=== PATIENT | female | born 1990 | race Caucasian/White ===

== ENCOUNTER → 2016-10-15 | Outpatient (CLI) | payer OTHER ==
[~2016-10-15] MED LIST: PREN1TAB29
[2016-10-15 11:21] LABS: BASO % 0.2 %; BASO ABS # 0.01 K/uL (0-0.2); COMPLETE YES; EOS % 0.8 %; HEMATOCRIT 35.1 % (37-47); IG% 0.2 %; LYMPH % 26.8 %; LYMPH ABS # 1.58 K/uL (1.2-3.4); MEAN CELL VOLUME 95.6 fL (80-100); MEAN CORPUSCULAR HEMOGLOBIN 34.1 pg (25-34); MEAN CORPUSCULAR HGB CONC 35.6 g/dl (32-36); MEAN PLATELET VOLUME 10.4 fL (7.4-10.4); MONO % 5.3 %; NEUT % 66.7 %; PLATELET COUNT 220 K/uL (130-400); RED BLOOD COUNT 3.67 M/uL (4.2-5.4)
[2016-10-15 12:10] LABS: URINE APPEARANCE CLEAR (CLEAR); URINE BILIRUBIN NEG (NEG); URINE COLOR YELLOW; URINE EPITHELIAL CELL AUTO 20-30 /lpf (0-5); URINE NITRITE NEG (NEG); URINE PH 7.5 (4.5-7.5); UROBILINOGEN NEG (NEG)
[2016-10-15 12:18] LABS: MANUAL MICROSCOPIC REQUIRED? NO; REVIEW REQ? NO
[2016-10-17 02:15] LABS: CHLAMYDIA TRACH RNA*** NOT DETECTED (NOT DETECTED); GC (NEIS GONORRHOEAE)RNA** NOT DETECTED (NOT DETECTED)
== END | disposition home or self-care (01) ==
LOC: C.LAB1850 09:52
PROVIDERS: ATTEND Obstetrics & Gynecology
DX: O09.33 Supervision of pregnancy with insufficient antenatal care, third trimester (principal)

== ENCOUNTER 2016-10-20 00:11 | Observation (INO) | payer OTHER ==
[~2016-10-20] VITALS: Ht 165.1 cm; Wt 70.9 kg
[2016-10-20 01:34] VITALS: BMI 26.0
[2016-10-20] MEDS ORDERED: LACTATED RINGER'S 1000ML 1,000 ML IV PRN (03:28)
[2016-10-20] MEDS ORDERED: LACTATED RINGER'S 1000ML 1,000 ML IV SCH (03:28)
[2016-10-20] MEDS ORDERED: PENICILLIN G POTASSIUM IV 3 MU in DEXTROSE 5% 100ML 100 ML IV PRN (03:30)
[2016-10-20 03:38] VITALS: Ht 165.1 cm; Wt 70.9 kg
[2016-10-20] MEDS ORDERED: PENICILLIN G POTASSIUM IV 6 MU in DEXTROSE 5% 250ML 250 ML IV ONE (03:45)
[2016-10-20 04:01] LABS: MEAN CORPUSCULAR HGB CONC 34.7 g/dl (32-36); PLATELET COUNT 215 K/uL (130-400); RED BLOOD COUNT 3.47 M/uL (4.2-5.4); WHITE BLOOD COUNT 8.17 K/uL (4.8-10.8)
[2016-10-20] MEDS ORDERED: IV FLUIDS COMPLETED PRN (04:45)
[2016-10-20] MEDS ORDERED: INFLUENZA VIRUS QUAD VACCINE 0.5 ML SYR IM. ONE (08:00)
[2016-10-20] MEDS ORDERED: INFLUENZA ADMINISTRATION CHARGE ONE (08:00)
--- NOTE | 2016-10-20 09:01 | Discharge Instructions ---
Discharge Instructions Admission Reason for Admission: LABOR Discharge Discharge Diagnosis / Problem: 38w, contractions without labor Discharge Goals Goal(s): Continuing OB care Activity Recommendations Activity Limitations: per Instructions/Follow-up section SPECIAL CARE INSTRUCTIONS: Call Doctor if: * Regular contractions every 5 minutes. * Bleeding * Water breaks or is leaking * Decreased movement * Fever >100.4 degrees F * Pain not relieved by routine measures or pain medication ordered. FOLLOW UP VISIT: Return to office tomorrow for scheduled appointment. . Current Hospital Diet Patient's current hospital diet: Discharge Diet Recommended Diet: Regular Diet Pending Studies Studies pending at discharge: no Medical Emergencies . Who to Call and When: Medical Emergencies: If at any time you feel your situation is an emergency, please call 911 immediately. . Non-Emergent Contact Non-Emergency issues call your: Primary Care Provider, Speedboat Operator . . "Provider Documentation" section prepared by Chinyere Moody. VTE Core Measure Inpt VTE Proph given/why not?: Treatment not indicated
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
== END 2016-10-20 09:30 | disposition home or self-care (01) ==
LOC: C.LD 00:11 → C.OPB 00:11 → C.LD 03:32 → INTOOBSV 03:32 → C.OPB 03:32
PROVIDERS: ADMIT Obstetrics & Gynecology; ATTEND Obstetrics & Gynecology
DX: O62.9 Abnormality of forces of labor, unspecified (principal); O99.820 Streptococcus B carrier state complicating pregnancy; O09.33 Supervision of pregnancy with insufficient antenatal care, third trimester; O99.333 Smoking (tobacco) complicating pregnancy, third trimester; F17.210 Nicotine dependence, cigarettes, uncomplicated; Z3A.38 38 weeks gestation of pregnancy; Z91.410 Personal history of adult physical and sexual abuse; Z86.19 Personal history of other infectious and parasitic diseases

== ENCOUNTER 2016-10-23 20:10 | Inpatient (IN) | payer OTHER ==
[~2016-10-23] VITALS: Ht 165.1 cm; Wt 72.5 kg
[2016-10-23 21:06] VITALS: Ht 165.1 cm; Wt 72.5 kg
[2016-10-23] MEDS ORDERED: LACTATED RINGER'S 1000ML 1,000 ML IV SCH (22:52)
[2016-10-23] MEDS ORDERED: LACTATED RINGER'S 1000ML 1,000 ML IV PRN (22:52)
[2016-10-23] MEDS ORDERED: CEFAZOLIN IV 1,000 MG in DEXTROSE 5% 50ML 50 ML IV PRN (23:00)
[2016-10-23] MEDS ORDERED: CEFAZOLIN IV 2,000 MG in DEXTROSE 5% 50ML 50 ML IV STA (23:09)
[2016-10-23 23:13] LABS: HEMATOCRIT 31.5 % (37-47); MEAN CELL VOLUME 95.5 fL (80-100); MEAN CORPUSCULAR HEMOGLOBIN 33.9 pg (25-34); MEAN CORPUSCULAR HGB CONC 35.6 g/dl (32-36); MEAN PLATELET VOLUME 9.7 fL (7.4-10.4); PLATELET COUNT 224 K/uL (130-400); WHITE BLOOD COUNT 7.09 K/uL (4.8-10.8)
[2016-10-23] MEDS ORDERED: FENTANYL 2MCG/ML ROPIV 1.25MG/ML 100ML BAG EPI ONE (23:30)
[2016-10-23] MEDS ORDERED: BUPIVACAINE 0.25% 30 ML VIAL ONE (23:30)
[2016-10-23] MEDS ORDERED: EpHEDrine SULFATE INJ 50 MG/ML AMP ONE (23:30)
[2016-10-23] MEDS ORDERED: FENTANYL CITRATE INJ 50 MCG/1 ML 2 ML VIAL ONE (23:31)
[2016-10-23] MEDS ORDERED: NALOXONE HCL INJ 1 MG in SODIUM CHLORIDE 0.9% 1000ML 1,000 ML IV PRN (23:41)
[2016-10-23] MEDS ORDERED: LACTATED RINGER'S 1000ML 500 ML IV PRN (23:41)
[2016-10-23] MEDS ORDERED: ONDANSETRON INJ 2 MG/ML 2 ML VIAL IV PRN (23:45)
[2016-10-23] MEDS ORDERED: EpHEDrine SULFATE INJ 50 MG/ML AMP IV PRN (23:45)
[2016-10-23] MEDS ORDERED: NALOXONE HCL INJ 0.4 MG/1 ML VIAL/CARP IV PRN (23:45)
[2016-10-23] MEDS ORDERED: NALBUPHINE HCL INJ 10 MG/ML AMP IV PRN (23:45)
[2016-10-23] MEDS ORDERED: DiphenhydrAMINE HCL 50 MG/ML VIAL IV PRN (23:45)
[2016-10-23] MEDS ORDERED: FENTANYL 2MCG/ML ROPIV 1.25MG/ML 100ML BAG EPI PRN (23:45)
[2016-10-24] MEDS ORDERED: OXYTOCIN 30 UNITS/500ML NSS IV ONE (04:25)
[2016-10-24] MEDS ORDERED: ACETAMINOPHEN 325 MG TAB PO PRN (05:45)
[2016-10-24] MEDS ORDERED: LANOLIN OINT EXT PRN ×2 (05:45)
[2016-10-24] MEDS ORDERED: HYDROCORTISONE ACETATE 25 MG SUPP PR PRN (05:45)
[2016-10-24] MEDS ORDERED: SUPERCREAM 0.870 % 15GM JAR EXT PRN (05:45)
[2016-10-24] MEDS ORDERED: OXYTOCIN 30 UNITS/500ML NSS IV PRN (05:45)
[2016-10-24] MEDS ORDERED: BENZOCAINE 20% AER SPR 82.5 GM CAN EXT PRN (05:45)
[2016-10-24] MEDS ORDERED: OXYCODONE/ACETAMINOPHEN 5-325 TAB PO PRN (05:45)
[2016-10-24] MEDS ORDERED: DIPHTHERIA/TETANUS/PERTUSSIS 0.5 ML SYR/VIAL IM. ONE (05:45)
[2016-10-24] MEDS ORDERED: ACETAMINOPHEN/CODEINE 300/30MG TAB PO PRN ×2 (05:45)
--- NOTE | 2016-10-24 07:36 | DELIVERY SUMMARY ---
DATE OF OPERATION: 10/24/2016 DATE OF DELIVERY: 10/24/2016. PREOPERATIVE DIAGNOSIS: 1. Intrauterine at 38-4/7 weeks. 2. Active labor. POSTOPERATIVE DIAGNOSIS: Same. PROCEDURE: 1. Epidural anesthesia. 2. Amniotomy. 3. Spontaneous vaginal delivery. SURGEON: Dr. Pfeiffer. ANESTHESIA: Epidural. ESTIMATED BLOOD LOSS: 300 mL. PROCEDURE: The patient presented to labor and delivery and was found to be 6-7 cm dilated despite the fact that she was not sabine regularly. She was GBS positive so she was admitted, underwent an epidural and Ancef for GBS coverage. She then underwent amniotomy for clear fluid and progressed to complete complete +2 station. She pushed x1 to deliver a viable male over an intact perineum in EDINSON presentation. There was a loose nuchal cord x1 that was reduced. The rest of the infant was then delivered without difficulty. The nose and mouth were again bulb suctioned. The cord was clamped and cut and the infant was placed on the maternal abdomen for drying and attention. Cord blood segment was obtained. The placenta was delivered spontaneously intact with a 3-vessel cord. Cervix, sulci, rectum and perineum were examined and found to be intact. Hemostasis obtained with dilute Pitocin and fundal massage. Estimated blood loss was 300 mL. Apgars 8 and 9. Mother and baby doing well at the end of the delivery. I attest to the content of the Intraoperative Record and any orders documented therein. Any exceptio ns are noted below.
--- NOTE | 2016-10-24 07:49 | Anesthesia Procedure Note ---
Anesthesia Epidural Removal Nt Date & Time Oct 24, 2016 at 07:49 Vital Signs Pain Intensity: 1.0 Notes Mental Status: alert / awake / arousable, participated in evaluation Nausea / Vomiting: adequately controlled Pain: adequately controlled Airway Patency, RR, SpO2: stable & adequate BP & HR: stable & adequate Hydration State: stable & adequate Neuraxial Anesthesia: was administered, sensory block is resolved Anesthetic Complications: no major complications apparent, pt satisfied with anesthetic care Epidural: removed without complications, with tip intact
[2016-10-24] MEDS ORDERED: INFLUENZA ADMINISTRATION CHARGE ONE (08:00)
[2016-10-24] MEDS ORDERED: INFLUENZA VIRUS QUAD VACCINE 0.5 ML SYR IM. ONE (08:00)
[2016-10-24 08:45] VITALS: BP 102/66; PULSE 82; TEMP 36.5
[2016-10-24] MEDS: IBUPROFEN 600 MG TAB PO PRN ×3 (11:11→21:13)
[2016-10-24 12:45] VITALS: BP 98/61; PULSE 71; TEMP 36.4; O2SAT 99
[2016-10-24 15:30] VITALS: BP 120/79; PULSE 87; TEMP 36.5; O2SAT 97
[2016-10-24] MEDS: DOCUSATE SODIUM 100 MG CAP PO SCH ×2 (20:00→21:13)
[2016-10-24 20:45] VITALS: BP 107/74; PULSE 88; TEMP 36.3; O2SAT 98
[2016-10-24] MEDS ORDERED: NURSING VERBAL MED ORDER ONE (21:00)
[2016-10-24] MEDS: GUAIFENESIN SUGAR FREE 100 MG/5 ML UDC PO PRN (21:14)
[2016-10-25] VITALS: BP 104/68; PULSE 79; TEMP 36.4; O2SAT 98
[2016-10-25 04:00] VITALS: BP 99/64; PULSE 73; TEMP 36.7; O2SAT 98
--- NOTE | 2016-10-25 06:34 | Progress Note ---
Subjective Oct 25, 2016. Subjective conversation w/ patient, physical exam Ambulation: ambulating normally Voiding: no voiding problems Passing Gas: Yes Diet Tolerance: Regular Diet Lochia: Moderate Feeding Type: Bottle Feeding Pain: No pain reported this morning Review of Systems Constitutional: No chills, No fever Respiratory: No cough, No shortness of breath Cardiac: No chest pain Breast: No breast pain Abdomen: No nausea, No pain, No vomiting Female : No dysuria Objective Vital Signs Date Time Temp Pulse Resp B/P Pulse Ox O2 Delivery O2 Flow Rate FiO2 10/25/16 04:00 36.7 73 16 99/64 98 Room Air 10/25/16 00:00 98 Room Air 10/25/16 00:00 36.4 79 16 104/68 98 Room Air 10/24/16 20:45 36.3 88 16 107/74 98 Room Air 10/24/16 15:30 36.5 87 15 120/79 97 Room Air 10/24/16 15:30 97 Room Air 10/24/16 12:45 36.4 71 16 98/61 99 Room Air 10/24/16 08:45 36.5 82 18 102/66 Physical Exam General Appearance: WELL-APPEARING, WD/WN, NO APPARENT DISTRESS Respiratory/Chest: lungs clear, normal breath sounds Cardiovascular: regular rate, rhythm, no gallop, no murmur Abdomen: non tender, soft Fundus: Firm, Relation to Umbilicus (1cm below umbilicus) Extremities: no calf tenderness Laboratory Results Last 24 Hours Test 10/25/16 04:44 Medications Current Inpatient Medications Medications (Trade) Dose Ordered Sig/Anup Route Start Time Stop Time Status Last Admin Dose Admin Oxytocin (Pitocin IV) 30 units UD PRN IV 10/24/16 05:45 11/23/16 05:44 10/24/16 05:59 30 UNITS Benzocaine (Dermoplast Aero Spr) 1 appln PRN PRN EXT 10/24/16 05:45 11/23/16 05:44 Cocaine HCl (Supercream 0.870% Cr) BID PRN EXT 10/24/16 05:45 11/07/16 05:44 Hydrocortisone Acetate (Anusol Hc Supp) 25 mg BID PRN AR 10/24/16 05:45 11/23/16 05:44 Lanolin (Lanolin Oint) PRN PRN EXT 10/24/16 05:45 11/23/16 05:44 Prenat Multivit/ [place]/Iron/Folic Ac ( Vitamin Tab) 1 tab DAILY PO 10/24/16 08:00 11/23/16 07:59 Ibuprofen (Motrin Tab) 600 mg Q4H PRN PO 10/24/16 05:45 11/23/16 05:44 10/24/16 21:13 600 MG Acetaminophen (Tylenol Tab) 650 mg Q6H PRN PO 10/24/16 05:45 11/23/16 05:44 Acetaminophen/ Codeine Phosphate (Tylenol w/ Codeine #3 Tab) 1 tab Q4H PRN PO 10/24/16 05:45 11/23/16 05:44 Acetaminophen/ Codeine Phosphate (Tylenol w/ Codeine #3 Tab) 2 tab Q4H PRN PO 10/24/16 05:45 11/23/16 05:44 Docusate Sodium (coLACE CAP) 100 mg BID PO 10/24/16 08:00 11/23/16 07:59 10/24/16 20:00 100 MG Guaifenesin (Robitussin Sugar Free Syrup) 300 mg Q6 PRN PO 10/24/16 21:00 11/23/16 20:59 10/24/16 21:14 300 MG Assessment and Plan Post- Day#: 1 Continue Routine Care: - Vital Signs reviewed and WNL (temp max 36.7) - Blood Type: A+, GBS Positive, Rubella Immune - Encourage Ambulation today - Tolerating PO Diet - Pain well controlled this morning Resident Physician Supervision Note: I was present with Dr. Hancock during the history and exam. I discussed the case with the resident and agree with the findings and plan as documented in the note. Any exceptions or clarifications are listed here: Doing well. Asking about d/c but baby will still be in nursery. Pt aware. routine care. Documented By: Marissa Brenner
[2016-10-25 06:40] LABS: HEMATOCRIT 29.1 % (37-47)
[2016-10-25] MEDS: PRENATAL VITAMIN TAB PO SCH ×2 (08:00→08:32)
[2016-10-25 08:25] VITALS: BP 115/77; PULSE 97; TEMP 36.7
[2016-10-25] MEDS: DOCUSATE SODIUM 100 MG CAP PO SCH (08:32)
[2016-10-25] MEDS: GUAIFENESIN SUGAR FREE 100 MG/5 ML UDC PO PRN (08:33)
[2016-10-25] MEDS: IBUPROFEN 600 MG TAB PO PRN ×2 (09:57→13:53)
[2016-10-25 15:45] VITALS: BP 110/66; PULSE 88; TEMP 36.3; O2SAT 98
--- NOTE | 2016-10-25 17:10 | Discharge Instructions ---
Discharge Instructions Admission Reason for Admission: Check Labor Discharge Discharge Diagnosis / Problem: same Discharge Goals Goal(s): Routine recovery after delivery Medications Continue Dispensed Medications: supercream, dermaplast Activity Recommendations Activity Limitations: as noted below . Instructions / Follow-Up Instructions / Follow-Up ACTIVITY RECOMMENDATIONS: * Gradual return to full activity over the next 2-3 weeks. * No lifting - nothing heavier than baby over the next 2-3 weeks. * Do not engage in vigorous exercise, sexual activity or sports until cleared by your physician. * Do not drive or operate any motorized equipment until cleared by your physician. * You may shower/bathe daily. MEDICATIONS: For discomfort or pain, you may use Acetaminophen (Tylenol), Ibuprofen (Advil), or Naproxen (Aleve) following the package directions. For constipation you may use Colace following the package directions. BREAST CARE: If you are not breast feeding: * Wear a supportive bra 24 hours a day for one to two weeks. * Avoid stimulating your breasts and nipples as much as possible during the first few weeks after delivery. * When taking a shower, have the warm water hit your back, not breasts. * When your breasts feel full, apply ice packs. Usually three to four times a day helps ease the discomfort. * Take a mild pain medication (Tylenol / Motrin) when you are uncomfortable. If breast feeding: * Use breast milk to lubricate nipples. Lansinoh cream may be used for sore nipples. You do not need to remove cream prior to breast feeding. If using a different brand of cream, check the label for directions regarding removal of cream prior to nursing. * Wear a supportive bra. * If having problems with breasts or breast feeding, call a hospice consultant or your health care provider. EPISIOTOMY CARE: After delivery, if you have an episiotomy (stitches), the following steps will ease discomfort and aid healing. * For the first 24 hours after delivery, place ice packs next to your episiotomy to help reduce swelling. * After the first 24 hour-period, sitz baths, either portable or in the tub, are suggested. A shower with a shower arm sprayed over the episiotomy may be comforting. * Rosamaria care should be done after each voiding and bowel movement. Squirt warm water from a plastic bottle over the perineum (region of the body between the anus and urinary opening) and pat dry. * Use Dermoplast to ease discomfort. Shake container. [place] directly over the episiotomy. Place a Tucks on a clean sanitary pad next to your episiotomy. SPECIAL CARE INSTRUCTIONS: When you are discharged from the hospital, it is important for you to follow the instructions listed below: * During the first week at home, you should be able to care for yourself and your baby. In addition, the usual light household activities are encouraged. * Limit your activities to the way you feel. Do not try to clean the house or move furniture. Be sensible. * If you actively engage in sports and have done so up until the time of your delivery, you may resume these activities as soon as you feel able. This may take up to one month or even longer. Use good judgment. * Continue to take your vitamins for at least six weeks after the of your baby. * Your diet need not be limited unless you were on a special diet before your delivery. Breast-feeding mothers need around 2500 calories per day and at least 64-80 ounces of fluid per day (8 to 10 glasses). * You should eat foods from the four major food groups. Crash diets or fad diets are to be avoided. Eating lean meats, fresh fruits and vegetables, low-fat dairy products, high fiber foods and a regular exercise program, will help you get back to your pre- weight without putting your health at risk. * Constipation is sometimes a problem after delivery. Take a mild laxative as needed. If breast feeding, Milk of Magnesia is acceptable to use. You may use a suppository or Fleets enema if no episiotomy. * A daily shower or tub bath is suggested. Be sure to thoroughly and gently dry the perineum. * A bloody vaginal discharge will usually continue until around four weeks post . A small amount of bleeding may continue for as long as six weeks. Vaginal discharge changes from the bright red bleeding after delivery to pink then brownish and finally yellowish-pink before becoming white and disappearing. * Bleeding may increase with activity. Your first period may come in 4-8 weeks. If you are breast feeding, your period may be delayed even longer. * Grampian (sex) can begin whenever both you and your partner feel comfortable and do not have any form of genital infection. It is recommended that you wait at least six weeks for internal and external healing to occur. If you have questions, please talk to your health care practitioner. A condom should be used to prevent infection and . * Foreplay, gentle intercourse and lubrication is very important the first several times to prevent pain. A water-based lubricant such as K-Y jelly or Astroglide may be used. * If you have RH negative blood and your baby is RH positive, you will receive RHOGAM by injection prior to discharge. The nurse will give you a card to keep with you that has the date and place that you received RHOGAM after delivery. * During your care, you had a Rubella screen done to check for the presence of rubella antibodies in your blood. If your test was negative, you will receive a Rubella vaccine prior to discharge. This vaccine may cause a fever, soreness at the injection site and flu-like symptoms. If these symptoms persist, notify your health care practitioner. is not advised for one month after a Rubella vaccine. * Verbalizes understanding of car seat law as reviewed with patient nursing. * Car Seat hand-out given and reviewed with patient by nursing. * Shaken baby information reviewed with patient by nursing. Call you doctor if: * Heavy bleeding (saturating several pads an hour) or passing clots the size of your fist. * A fever >101 degrees F (38.3 degrees C) on two occasions four hours apart and /or chills. * Unusual pain in the pelvic or vaginal areas. * "Baby Blues" lasting longer than two weeks. If you have any questions or concerns, call your health care practitioner at . FOLLOW UP VISIT: * Please call the office at to schedule a 6 week examination. It is important you keep this appointment. It is important for you to make arrangements for either yearly or twice yearly check-ups thereafter. Current Hospital Diet Patient's current hospital diet: Regular OB Diet Discharge Diet Recommended Diet: Regular Diet Pending Studies Studies pending at discharge: no Medical Emergencies . Who to Call and When: Medical Emergencies: If at any time you feel your situation is an emergency, please call 911 immediately. . Non-Emergent Contact Non-Emergency issues call your: Telehealth Nurse Educator Call Non-Emergent contact if: you have a fever, temperature is above 100.5 . . "Provider Documentation" section prepared by David Tsang. VTE Core Measure Inpt VTE Proph given/why not?: Treatment not indicated
[2016-10-25 17:25] VITALS: BP_DIAS 66; PULSE 88; TEMP 36.3
== END 2016-10-25 17:35 | disposition home or self-care (01) | DRG 775 ==
LOC: C.LD 20:10 → C.OPB 20:10 → C.LD 22:53 → C.OPB 22:53 → C.OBG 10-24 09:10
PROVIDERS: ADMIT Obstetrics & Gynecology; ATTEND Obstetrics & Gynecology
PROC: 10E0XZZ Delivery of Products of Conception, External Approach (ICD-10-PCS; principal; 2016-10-24)
PROC: 10907ZC Drainage of Amniotic Fluid, Therapeutic from Products of Conception, Via Natural or Artificial Opening (ICD-10-PCS; principal; 2016-10-24)
DX: O99.824 Streptococcus B carrier state complicating childbirth (principal); Z3A.38 38 weeks gestation of pregnancy; Z37.0 Single live birth; O69.81X0 Labor and delivery complicated by cord around neck, without compression, not applicable or unspecified

== ENCOUNTER → 2016-12-04 | Outpatient (CLI) | payer OTHER | END | disposition home or self-care (01) | LOC: C.PAPS 11:59 | PROVIDERS: ATTEND Obstetrics & Gynecology | DX: Z39.2 Encounter for routine postpartum follow-up (principal) ==

== ENCOUNTER → 2017-01-01 | Outpatient (CLI) | payer OTHER ==
[2017-01-01 15:55] LABS: HEMATOCRIT 37.5 % (37-47); MEAN CELL VOLUME 96.4 fL (80-100); MEAN CORPUSCULAR HEMOGLOBIN 31.4 pg (25-34); MEAN CORPUSCULAR HGB CONC 32.5 g/dl (32-36); MEAN PLATELET VOLUME 10.3 fL (7.4-10.4); PLATELET COUNT 223 K/uL (130-400); RED BLOOD COUNT 3.89 M/uL (4.2-5.4); WHITE BLOOD COUNT 5.79 K/uL (4.8-10.8)
== END | disposition home or self-care (01) ==
LOC: C.LAB1850 14:44
PROVIDERS: ATTEND Obstetrics & Gynecology
DX: Z30.2 Encounter for sterilization (principal)

== ENCOUNTER → 2017-01-14 | Day surgery (SDC) | payer OTHER ==
[2016-12-26 11:16] VITALS: Ht 165.1 cm; Wt 63.6 kg
[~2017-01-14] VITALS: Ht 165.1 cm; Wt 63.6 kg
[~2017-01-14] MED LIST changes: +ATROPINE SULFATE 0.1 MG/ML 5ML SYR IV PRN; +DEXAMETHASONE SOD INJ 4 MG/ML VIAL ONE; +FENTANYL CITRATE INJ 50 MCG/1 ML 2 ML VIAL IV PRN; +FENTANYL CITRATE INJ 50 MCG/1 ML 2 ML VIAL ONE; +GLYCOPYRROLATE INJ 0.2 MG/ML VIAL ONE; +IBUPROFEN 600 MG TAB PO PRN; +KETOROLAC TROMETHAMINE 30 MG/ML VIAL IV. PRN; +KETOROLAC TROMETHAMINE 30 MG/ML VIAL ONE; +LIDOCAINE HCL 2% 2 ML VIAL (20MG/ML) ONE; +MIDAZOLAM HCL 1 MG/ML 2ML VIAL ONE; +NEOSTIGMINE METHYLSULFATE 5 MG/5 ML SYR ONE; +ONDANSETRON INJ 2 MG/ML 2 ML VIAL IV PRN; +ONDANSETRON INJ 2 MG/ML 2 ML VIAL ONE; +OXYCODONE/ACETAMINOPHEN 5-325 TAB PO PRN; -PREN1TAB29; +PROMETHAZINE HCL INJ 12.5 MG in SODIUM CHLORIDE 0.9% 50ML 50 ML IV PRN; +PROPOFOL IV EMULSION 10 MG/ML 20 ML VIAL IV ONE; +ROCURONIUM BROMIDE 10 MG/ML 5 ML VIAL ONE; +SILVER NITR/POTASSIUM NITRATE APPLICATOR ONE; +SODIUM CHLORIDE 0.9% 1000ML 1,000 ML IV SCH
[2017-01-14] MEDS: LACTATED RINGER'S 1000ML 1,000 ML IV SCH ×2 (11:15→13:23)
--- NOTE | 2017-01-14 12:02 | History & Physical Bridge - SC ---
H&P Re-Evaluation Bridge Note: I have examined the patient, reviewed the History & Physical and in the interval since the performance of the History & Physical I have noted the following changes of clinical significance: No changes noted
--- NOTE | 2017-01-14 12:46 | [facility] Post Operative Brief Note ---
Immediate Operative Summary Operative Date January 14, 2017. Pre-Operative Diagnosis Desires Permanent Sterilization Post-Operative Diagnosis same Procedure(s) Performed Bilateral Laparoscopic Tubal Sterilization via Coagulation Surgeon Dr. Nils Brenner Coremaker Pipe Surgeon(s) 0 Estimated Blood Loss 0 Findings uterus mobile, nl ovaries and tubes bilaterally, nl liver edge and gallbladder. nl appendix seen Fluids (cc crystalloids) 600 Specimens none Drains none Anesthesia general Complication(s) None Disposition Recovery Room / PACU
--- NOTE | 2017-01-14 12:51 | Discharge Instructions ---
Discharge Instructions Date of Service January 14, 2017. Admission Reason for Admission: Encounter For Sterilization Discharge Discharge Diagnosis / Problem: after surgery Discharge Goals Goal(s): Routine recovery after surgery Activity Recommendations Activity Limitations: as noted below . Instructions / Follow-Up Instructions / Follow-Up ACTIVITY RECOMMENDATIONS: * Rest the first 1-2 days. You should be back to your normal activity levels by day 3. * No heavy lifting for 2 weeks. * No intercourse, tampons or douching for 1-2 weeks. * You may shower the next day. * Do not drive anytime that you are taking narcotic pain medicines. RETURN TO SCHOOL/WORK: * May return to school or work after 1-2 days. DIET: Nausea may occur in the immediate post-operative period. If so, take clear liquids such as tea, bouillon, apple juice until all nausea has subsided, then resume usual diet. MEDICATIONS: Resume previous medications unless instructed otherwise by your surgeon. Ibuprofen 200mg 2-3 tablets every 4-6 hours as needed -- OR -- Aleve 2 tablets every 8-12 hours as needed for post-operative discomfort Medications are over the counter. Tylenol may be used if above medications are contraindicated or not preferred. Medication should be taken with food or milk. Do not take on an empty stomach. SPECIAL CARE INSTRUCTIONS: * Check temperature twice daily for one week. report any elevation over 101 degrees. * You may experience some vagina spotting and/or bleeding. This is normal for 1 -2 weeks and should not be heavier than a normal period. If it is unusual in amount, call your physician. * Post-operative discomfort may consist of a sore throat, a "bloated" feeling and pain in the shoulders. these are normal symptoms, which usually only last for 2-3 days. * Remove band-aids tomorrow and shower. There is no need to replace band-aids unless there is drainage or discomfort. FOLLOW UP VISIT: Call your doctor's office for a post-operative visit only if you feel that you need. Like if your incision does not seem to be healing normally. Current Hospital Diet Patient's current hospital diet: Discharge Diet Recommended Diet: Regular Diet Procedures Procedures Performed: Bilateral Laparoscopic Tubal Sterilization via Coagulation Pending Studies Studies pending at discharge: no Medical Emergencies . Who to Call and When: Medical Emergencies: If at any time you feel your situation is an emergency, please call 911 immediately. . Non-Emergent Contact Non-Emergency issues call your: Drywall Applicator . . "Provider Documentation" section prepared by Marissa Brenner. . VTE Core Measure Inpt VTE Proph given/why not?: Treatment not indicated
--- NOTE | 2017-01-14 13:25 | OPERATIVE REPORT ---
DATE OF OPERATION: 01/14/2017 PREOPERATIVE DIAGNOSIS: Desires sterilization. POSTOPERATIVE DIAGNOSIS: Same. PROCEDURE: Bilateral laparoscopic tubal coagulation. SURGEON: Dr. Marissa Brenner. INDUSTRIAL ORGANIZATIONAL PSYCHOLOGIST: None. ANESTHESIA: General. IV FLUIDS: 600 mL. ESTIMATED BLOOD LOSS: Zero. FINDINGS: Normal uterus, tubes and ovaries bilaterally. Normal liver edge and gallbladder. Normal appendix seen. INDICATIONS: A 26-year-old 4, para 4 who is sure she is done childbearing and desires permanent sterilization. She is aware of all of her control options including male vasectomy and desires to proceed. DESCRIPTION OF PROCEDURE: The patient was taken to the operating room and identified. After adequate general anesthesia was obtained, she was placed in the dorsal lithotomy position and prepped and draped in usual sterile fashion. A weighted speculum and anterior retractor were used to visualize the cervix, which was grasped in its anterior lip with a single tooth tenaculum and the acorn uterine manipulator was connected to tenaculum to allow for uterine manipulation. The bladder had been drained for clear yellow urine. Attention was then turned to the patient's abdomen, where the infraumbilical skin incision was made with a scalpel. The Veress needle was placed intraperitoneally with an opening pressure of 0 mmHg. A CO2 pneumoperitoneum was created. The 12-mm optical trocar was placed into the peritoneal cavity under direct visualization. The operative laparoscope was then switched and the patient was placed in Trendelenburg. The left fallopian tube was identified to its fimbriated end and coagulated in approximately a 3-cm segment 2-3 cm from the left cornu. The right fallopian tube was identified in a similar fashion and coagulated in a similar fashion. The pelvis and abdomen were inspected with the findings as noted above. At this point the procedure was terminated. The CO2 gas was allowed to escape from the patient's abdomen and then, the trocar was removed. The subcutaneous fat was reapproximated using 0 Vicryl followed by a subcuticular stitch of 4-0 Vicryl. The vaginal instruments were removed. No active bleeding was noted. The patient was returned to the supine position. She was awoken from anesthesia and transported to recovery room in stable condition. All sponge, lap and needle counts were correct x2. I attest to the content of the Intraoperative Record and any orders documented therein. Any exceptio ns are noted below.
[2017-01-14 14:00] VITALS: TEMP 36.5
[2017-01-14 14:20] VITALS: BP 97/67; PULSE 75; O2SAT 100
--- NOTE | 2017-01-14 14:25 | Anesthesia Progress Nt - [facility] ---
Anesthesia Post Op Note Date & Time January 14, 2017 at 14:25 Vital Signs Vital Signs Past 12 Hours Date Time Temp Pulse Resp B/P Pulse Ox O2 Delivery O2 Flow Rate FiO2 01/14/17 14:20 75 16 97/67 100 Room Air 01/14/17 14:00 36.5 70 16 104/70 98 Room Air 01/14/17 13:40 104/71 01/14/17 13:37 72 26 100 01/14/17 13:37 70 26 01/14/17 13:35 98/66 01/14/17 13:32 54 13 01/14/17 13:32 53 13 100 01/14/17 13:30 105/65 01/14/17 13:27 55 14 01/14/17 13:27 55 14 100 01/14/17 13:26 36.8 55 12 101/69 100 Room Air 01/14/17 13:25 101/69 01/14/17 13:22 67 15 98 01/14/17 13:22 62 15 01/14/17 13:21 59 13 99 01/14/17 13:21 59 13 01/14/17 13:20 101/69 01/14/17 13:16 60 14 01/14/17 13:16 60 14 99 01/14/17 13:15 98/65 01/14/17 13:11 65 16 01/14/17 13:11 67 16 100 01/14/17 13:10 99/69 01/14/17 13:08 73 21 01/14/17 13:08 72 21 95 01/14/17 13:05 93/64 01/14/17 13:03 77 18 01/14/17 13:03 78 18 98 01/14/17 13:00 97/66 01/14/17 12:58 81 18 100 01/14/17 12:58 82 18 01/14/17 12:57 105/64 01/14/17 12:56 80/59 01/14/17 12:53 36.8 94 20 118/76 98 Diffusion Mask 6 01/14/17 12:53 96 9 01/14/17 12:53 96 9 118/76 100 01/14/17 10:49 36.6 78 16 104/75 96 Room Air Notes Mental Status: alert / awake / arousable, participated in evaluation Pt Amnestic to Procedure: Yes Nausea / Vomiting: adequately controlled Pain: adequately controlled Airway Patency, RR, SpO2: stable & adequate BP & HR: stable & adequate Hydration State: stable & adequate Anesthetic Complications: no major complications apparent
== END | disposition home or self-care (01) ==
LOC: X.SURG 10:43
PROVIDERS: ATTEND Obstetrics & Gynecology
DX: Z30.2 Encounter for sterilization (principal); F17.200 Nicotine dependence, unspecified, uncomplicated

== ENCOUNTER → 2017-05-30 | Outpatient (CLI) | payer OTHER ==
[2017-05-30 09:47] LABS: HEMATOCRIT 39.2 % (37-47); MEAN CELL VOLUME 95.6 fL (80-100); MEAN CORPUSCULAR HGB CONC 33.4 g/dl (32-36); MEAN PLATELET VOLUME 10.1 fL (7.4-10.4); PLATELET COUNT 221 K/uL (130-400); WHITE BLOOD COUNT 6.14 K/uL (4.8-10.8)
[2017-05-30 09:52] LABS: URINE APPEARANCE CLEAR (CLEAR); URINE BILIRUBIN NEG (NEG); URINE COLOR YELLOW; URINE EPITHELIAL CELL AUTO >30 /lpf (0-5); URINE NITRITE NEG (NEG); URINE PH 6.5 (4.5-7.5); URINE SPECIFIC GRAVITY 1.013 (1.000-1.030); UROBILINOGEN NEG (NEG)
[2017-05-30 10:11] LABS: MANUAL MICROSCOPIC REQUIRED? NO; REVIEW REQ? NO
== END | disposition home or self-care (01) ==
LOC: C.LAB 09:16
PROVIDERS: ATTEND Nurse Practitioner Family
DX: Z02.0 Encounter for examination for admission to educational institution (principal); Z01.84 Encounter for antibody response examination

== ENCOUNTER → 2017-06-06 | Outpatient (CLI) | payer OTHER ==
[2017-06-06 11:27] LABS: URINE APPEARANCE CLEAR (CLEAR); URINE BILIRUBIN NEG (NEG); URINE COLOR YELLOW; URINE NITRITE NEG (NEG); URINE SPECIFIC GRAVITY 1.011 (1.000-1.030); UROBILINOGEN NEG (NEG)
[2017-06-06 11:28] LABS: MANUAL MICROSCOPIC REQUIRED? NO; REVIEW REQ? NO
== END | disposition home or self-care (01) ==
LOC: C.LAB 09:47
PROVIDERS: ATTEND Nurse Practitioner Family
DX: Z02.0 Encounter for examination for admission to educational institution (principal); R82.90 Unspecified abnormal findings in urine

== ENCOUNTER → 2017-11-19 | Outpatient (CLI) | payer OTHER ==
[2017-11-19 13:19] LABS: BASO % 0.4 %; BASO ABS # 0.02 K/uL (0-0.2); EOS % 3.6 %; EOS ABS # 0.19 K/uL (0-0.5); HEMATOCRIT 40.3 % (37-47); HEMOGLOBIN 13.5 g/dL (12.0-16.0); IG# 0.01 K/uL (0.00-0.02); LYMPH % 40.3 %; LYMPH ABS # 2.11 K/uL (1.2-3.4); MEAN CELL VOLUME 95.3 fL (80-100); MEAN CORPUSCULAR HEMOGLOBIN 31.9 pg (25-34); MEAN CORPUSCULAR HGB CONC 33.5 g/dl (32-36); MEAN PLATELET VOLUME 10.2 fL (7.4-10.4); MONO % 4.8 %; MONO ABS # 0.25 K/uL (0.11-0.59); NEUT % 50.7 %; NEUT ABS # 2.65 K/uL (1.4-6.5); PLATELET COUNT 241 K/uL (130-400); RED CELL DISTRIBUTION WIDTH CV 12.8 % (11.5-14.5); RED CELL DISTRIBUTION WIDTH SD 44.3 fL (36.4-46.3); WHITE BLOOD COUNT 5.23 K/uL (4.8-10.8)
[2017-11-19 13:47] LABS: BLOOD UREA NITROGEN 10 mg/dl (7-18); CARBON DIOXIDE 27 mmol/L (21-32); CREATININE 0.65 mg/dl (0.60-1.20); GLUCOSE 86 mg/dl (70-99); SODIUM 138 mmol/L (136-145)
== END | disposition home or self-care (01) ==
LOC: C.LAB 12:25
PROVIDERS: ATTEND Nurse Practitioner Family
DX: F32.9 Major depressive disorder, single episode, unspecified (principal); R53.83 Other fatigue

== ENCOUNTER 2024-10-17 18:36 | Inpatient (IN) ==
--- NOTE | 2024-10-17 19:31 | Emergency Department Note ---
Impression & Plan Depression with suicidal ideation, Anxiety ED Provider Note Provider: Олег Valencia MD CHIEF COMPLAINT: Suicidal ideation and attempt HISTORY OF PRESENT ILLNESS: Patient is a 34-year-old female history of anxiety depression and PTSD presenting here today requesting mental health care for suicidal ideation and recent attempt. 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 Last January had a suicide attempt with car monoxide in her car. Was hospitalized at [facility]. Patient states that she did have great outpatient follow-up and is in currently seeing anybody or taking any psychiatric medications. Occasionally drinks but denies other drug use. 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 Woke up the next day sweaty and cold and was upset that she was unsuccessful in completing suicide. Patient reached out to her mother who help with her children and she resigned from her job and got things in order and came here today seeking inpatient psychiatric care. States he still having thoughts of wanting to harm her self and end her life. No thoughts of wanting to harm others. No other times recently to harm her self reported. States he is probably taking medications and has not taken even a multivitamin as she just does not have the will to. PAST MEDICAL HISTORY: As noted above MEDICATIONS: None currently SOCIAL HISTORY: Smoker PHYSICAL EXAM: GENERAL: alert and oriented in no acute distress on bed Head: normocephalic and atraumatic EYES: No injection, discharge or icterus. NECK: Trachea midline. ENT: Mucous membranes pink and moist. LUNGS: Airway patent. No retractions. Breath sounds clear HEART: Regular rate and rhythm. No chest wall tenderness SKIN: Acyanotic, warm, dry, without rashes EXTREMITIES: Without swelling, tenderness or deformity NEUROLOGICAL: No focal deficits. No aphasia. No facial droop or slurred speech. Ambulatory. Psych: Flattened aspect. Endorses SI but denies HI. Not responding to external stimuli. Does maintain fairly good insight at this time. Patient's laboratory studies reviewed. Differential includes Mood disorder, infection, hypoglycemia, electrolyte abnormalities, cardiac sources, intracerebral event, toxicologic, trauma, neurologic, as well as other pathologies. IMPRESSION/MEDICAL DECISION MAKING: Seen with case management. Basic blood work obtained here. Recent suicide attempt 2 weeks ago unsuccessful and still with active ideation. She is requesting voluntary inpatient treatment I believe is indicated. Basic blood work obtained here. Work on referral. Given a nicotine patch and a bit of Ativan here for anxiety. Blood work here without any significant abnormalities or hypoglycemia. No concern at this time for UTI. A bit of blood in the urine. Bed search for voluntary inpatient care initiated. Evaluated by the 3 S. psychiatric team here. Accepted for inpatient care here. Given additional dose of Ativan for anxiety here. DIAGNOSIS: Depression with suicidal ideation, anxiety DISPOSITION: 201 completed for voluntary inpatient treatment. Past Med/Surg History Problem List (Updated 10/17/24 @ 20:52 by Олег Valencia M.D.) Anxiety (Acute) Depression with suicidal ideation (Acute) Abdominal pain affecting , antepartum with 38 completed weeks gestation Prolonged latent phase of labor Medical History (Updated 10/17/24 @ 20:52 by Олег Valencia M.D.) Varicella History of chlamydia infection Surgical History (Updated 06/20/19 @ 21:57 by Hannah Whitehead) History of colposcopy Social History (Updated 06/20/19 @ 21:57 by Hannah Whitehead) Smoking Status: Current every day smoker Tobacco Type: Cigarettes Do You Dip or Chew Tobacco: No; Preferred Language: Hebrew Communication Ability: Effective Physician Intensivist Required: No Beliefs That Will Affect Care: None Feels Safe at Home: Yes Gender Identity: Female Assistive Devices: None Allergies Allergies Allergy/AdvReac Type Severity Reaction Status Date / Time No Known Drug Allergies Allergy Unknown . Verified 12/26/16 11:15 tree nut Allergy Unknown ANAPHYLAXIS Verified 12/26/16 11:15 Home Meds Home Medications Medication Instructions Recorded Confirmed No Known Home Medications 10/17/24 10/17/24 Results & Data (ED) Vital Signs Vital Signs - 24 hr 10/17/24 18:38 10/17/24 19:40 10/17/24 20:58 Temperature 36.3 C L Temperature Source Temporal Artery Scan Pulse Rate 105 H Pulse Rate [Right Finger] 94 H 86 Pulse Rhythm Regular Pulse Rhythm [Right Finger] Regular Pulse Strength Normal Pulse Strength [Right Finger] Normal Respiratory Rate 18 17 17 Respiratory Effort / Characteristics Non-Labored Spontaneous Non-Labored Spontaneous Respiratory Depth Normal Normal Respiratory Pattern Regular Regular Blood Pressure 100/75 Blood Pressure [Right Arm] 189/114 H 167/101 H Blood Pressure Mean 83 Blood Pressure Mean [Right Arm] 139 123 Blood Pressure Position [Right Arm] Lying Sitting Pulse Oximetry 98 97 97 Oxygen Delivery Method Room Air Room Air Room Air Sepsis Recent Fever Within 48 Hours No Sepsis New/Unexplained Change in Mental Status N/A Sepsis Action Taken by Nursing No Action Required Laboratory Data 10/17/24 19:30 10/17/24 19:30 Lab Results 10/17/24 10/17/24 10/17/24 Range/Units 18:45 19:30 20:28 WBC 8.51 (4.8-10.8) K/ul RBC 4.26 (4.20-5.40) M/uL Hgb 13.8 (12.0-16.0) g/dl Hct 40.5 (37.0-47.0) % MCV 95.1 (80.0-100.0) fL MCH 32.4 (25.0-34.0) pg MCHC 34.1 (32.0-36.0) g/dL RDW Std Deviation 42.1 (36.4-46.3) fL RDW Coeff of Robert 12.0 (11.5-14.5) % Plt Count 327 (130-400) K/uL MPV 9.9 (9.4-12.4) fL Immature Gran % (Auto) 0.1 % Neut % (Auto) 55.6 % Lymph % (Auto) 30.2 % Powell % (Auto) 7.3 % Eos % (Auto) 6.2 % Baso % (Auto) 0.6 % Neut # (Auto) 4.73 (1.40-6.50) K/uL Lymph # (Auto) 2.57 (1.20-3.40) K/uL Powell # (Auto) 0.62 H (0.11-0.59) K/uL Eos # (Auto) 0.53 H (0.00-0.50) K/uL Baso # (Auto) 0.05 (0.00-0.20) K/uL Immature Gran # (Auto) 0.01 (0.01-0.20) K/uL Sodium 139 (136-145) mmol/L Potassium 4.0 (3.5-5.1) mmol/L Chloride 104 (98-107) mmol/L Carbon Dioxide 29 (21-32) mmol/L Anion Gap 6 (3-11) BUN 15 (6-23) mg/dl Creatinine 0.84 (0.6-1.2) mg/dl Est Cr Clr Drug Dosing 94.2 ml/min eGFR 92.30 BUN/Creatinine Ratio 17.9 (10-20) Glucose 95 (70-99(Fasting)) mg/dl Calcium 9.3 (8.6-10.3) mg/dl Total Bilirubin 0.5 (0.2-1.0) mg/dl AST 14 (13-39) U/L ALT 13 (7-52) U/L Alkaline Phosphatase 65 (34-104) U/L Total Protein 7.8 (6.0-8.3) gm/dl Albumin 4.9 (3.4-5.0) gm/dl Globulin 2.9 (2.5-4.0) gm/dl Albumin/Globulin Ratio 1.7 (0.9-2) TSH 3.119 (0.300-4.500) uIu/ml HCG, Qual Negative (Negative) Salicylates < 3.0 L (3.0-30) mg/dl Urine Opiates Screen Neg (Neg) Ur Methadone, Qual Neg (Neg) Urine Fentanyl Screen Neg (Neg) Acetaminophen < 3 L (10-30) ug/ml Urine Barbiturates Neg (Neg) Ur Phencyclidine (PCP) Neg (Neg) U Amphetamin/Meth Scrn Neg (Neg) MDMA (Ecstasy) Screen Neg (Neg) U Benzodiazepines Scrn Neg (Neg) Ur Cocaine Metabolite Neg (Neg) U Marijuana (THC) Screen Neg (Neg) Ethyl Alcohol mg/dL < 10.0 (<10.0) mg/dl SARS-CoV-2, RNA, NAAT NEGATIVE (NEGATIVE) Administered Medications Nicotine (Nicotine 21 Mg/24 Hr Tdsy) 1 patch TD QAM WILSON Stop: 11/16/24 19:29 Last Admin: 10/17/24 19:37 Dose: 1 patch Documented By: PAG Nicotine Polacrilex (Nicotine Polacrilex 2 Mg Gum) 2 piece MT PRN PRN PRN Reason: Nicotine Withdrawal Symptoms Stop: 11/16/24 21:39 Last Admin: 10/17/24 22:11 Dose: 2 piece Documented By: RB Discontinued Medications Lorazepam (Lorazepam 0.5 Mg Tab) 0.5 mg PO NOW STA Stop: 10/17/24 19:27 Last Admin: 10/17/24 19:37 Dose: 0.5 mg Documented By: AMITA Lorazepam (Lorazepam 1 Mg Tab) 1 mg PO NOW STA Stop: 10/17/24 21:12 Last Admin: 10/17/24 21:20 Dose: 1 mg Documented By: AMITA Discharge Plan Visit Data Chief Complaint: Mental Health Evaluation Stated Complaint: MENTAL HEATLH EVAL ED Provider: Олег Valencia Discharge Problem: Depression with suicidal ideation, Anxiety Patient Disposition: Admitted As Inpatient Discharge Instructions Interventions: ED Discharge Assessment Last Done: 10/17/24 21:32
[2024-10-17] MEDS: NICOTINE 21 MG/24 HR TDSY TD SCH (19:37)
[2024-10-17] MEDS: LORazepam 0.5 MG TAB PO STA (19:37)
[2024-10-17 19:46] LABS: Basophils # (auto) 0.05 K/uL (0.00-0.20); Basophils % (auto) 0.6 %; Eosinophils # (auto) 0.53 K/uL (0.00-0.50); Eosinophils % (auto) 6.2 %; Hematocrit (blood only) 40.5 % (37.0-47.0); Hemoglobin 13.8 g/dl (12.0-16.0); Immature Granulocytes # (auto) 0.01 K/uL (0.01-0.20); Immature Granulocytes % (auto) 0.1 %; Lymphocytes # (auto) 2.57 K/uL (1.20-3.40); Lymphocytes % (auto) 30.2 %; Mean Corpuscular Hemoglobin 32.4 pg (25.0-34.0); Mean Corpuscular Hgb Conc 34.1 g/dL (32.0-36.0); Mean Corpuscular Volume 95.1 fL (80.0-100.0); Mean Platelet Volume 9.9 fL (9.4-12.4); Monocytes # (auto) 0.62 K/uL (0.11-0.59); Monocytes % (auto) 7.3 %; Neutrophils # (auto) 4.73 K/uL (1.40-6.50); Neutrophils % (auto) 55.6 %; Platelet Count 327 K/uL (130-400); RDW Standard Deviation 42.1 fL (36.4-46.3); Red Blood Count 4.26 M/uL (4.20-5.40); White Blood Count 8.51 K/ul (4.8-10.8)
[2024-10-17 20:02] LABS: Pregnancy Test, Serum Negative (Negative)
[2024-10-17 20:03] LABS: Albumin Globulin Ratio 1.7 (0.9-2); Albumin Level 4.9 gm/dl (3.4-5.0); BUN Creatinine Ratio 17.9 (10-20); Bilirubin,Total 0.5 mg/dl (0.2-1.0); Calcium 9.3 mg/dl (8.6-10.3); Creatinine Clr Calc Pharmacy 94.2 ml/min; Globulin 2.9 gm/dl (2.5-4.0); Total Protein 7.8 gm/dl (6.0-8.3)
[2024-10-17 20:18] LABS: Thyroid Stimulating Hormone 3.119 uIu/ml (0.300-4.500)
[2024-10-17 20:46] LABS: Acetaminophen < 3 ug/ml (10-30); Salicylate < 3.0 mg/dl (3.0-30)
[2024-10-17 20:47] LABS: Appearance Urine Cloudy (Clear); Bacteria Urine Automated 2+ (None Seen); Bilirubin Urine Negative (Negative); Blood Urine 3+ (Negative); Cast Urine Automated 0-2 /lpf (0-2); Color Urine Yellow; Glucose Urine UA Negative (Negative); Ketones Urine Trace (Negative); Leukocyte Esterase Urine Trace (Negative); Nitrite Urine Negative (Negative); Protein Urine Trace (Negative); RBC Urine Automated >20 /hpf (0-2); Specific Gravity Urine 1.025 (1.000-1.030); Urobilinogen Urine Negative (Negative); WBC Urine Automated 0-5 /hpf (0-5)
[2024-10-17 21:10] LABS: Amphetamines+Metham, Urine Neg (Neg); Barbiturates, Urine Neg (Neg); Benzodiazepine, Urine Neg (Neg); Cocaine, Urine Neg (Neg); Fentanyl, Urine Neg (Neg); MDMA (Ecstacy), Urine Neg (Neg); Marijuana, Urine Neg (Neg); Methadone, Urine Neg (Neg); Opiate, Urine Neg (Neg); Phencyclidine, Urine Neg (Neg)
[2024-10-17] MEDS: LORazepam 1 MG TAB PO STA (21:20)
[2024-10-17] MEDS ORDERED: MAGNESIUM HYDROXIDE SUSP 30 ML UDC PO PRN (21:40)
[2024-10-17] MEDS ORDERED: BISMUTH SUBSALICYLATE 262 MG CHEW PO PRN (21:40)
[2024-10-17] MEDS ORDERED: SODIUM CHLORIDE 0.65% NA SOLN 45 ML (OCEAN) PRN (21:40)
[2024-10-17] MEDS: NICOTINE POLACRILEX 2 MG GUM MT PRN (22:11)
--- NOTE | 2024-10-18 09:05 | History & Physical ---
Date of Service October 18, 2024 Impression / Recommendations Impression DANITA HOGUE is a 34-year-old woman who is currently unhoused with her children (ages 7-15), has a history of MDD, DAVID, PTSD, and was admitted on 10/17/24 21:18 on a 201 voluntary commitment for SI with plan of trying to overdose on insulin and s/p attempt via insulin overdose two weeks ago. Diagnostically consistent with unspecified depression with differential including bipolar affective disorder type II current depressive episode vs major depressive disorder, recurrent severe as well as DAVID with panic attacks and PTSD. Suspect insomnia is multifactorial including difficulty due to variable overnight shift-work schedule as well as DAVID, depression and PTSD. Discussed medication treatment options in detail. Discussed risks, benefits and alternatives. Patient would like to start and consented to Eleele for suspected bipolar disorder type II and for use for suicidal ideation and depression as well as fluoxetine for depression/anxiety/PTSD. Also discussed option to consider use of clonidine for off-label use for anxiety/PTSD and/or mirtazapine for anxiety/depression/insomnia/low appetite depending on response to other new medications. Reviewed side effects including but not limited to: GI, GOLD, sexual side effects with fluoxetine; Baseline labs of TSH, Cr, electrolytes, LFTs, CBC with platelets and UA were preformed and safe to start Eleele. Patient educated on risks of dehydration, renal, thyroid, cardiac, drug interactions (NSAIDs, ACEIs, angiotensin receptor antagonists, risks) with lithium which she stated understanding of. Reviewed low BP/syncope with clonidine if used and sedation/weight gain with mirtazapine if used. Overall I spent a total of 75 minutes for this admission including review of chart records, review of labwork, direct evaluation of the patient, counseling the patient, ordering medication, risk assessment, discussion with the psychiatric liason RN and documentation in the electronic health record. (1) Depression with suicidal ideation: (2) Generalized anxiety disorder with panic attacks: (3) Post traumatic stress disorder (PTSD): (4) Bipolar II disorder with seasonal pattern: (5) Psychosocial stressors: (6) Housing insecurity: (7) Sleep disorder, shift-work: (8) Insomnia: Plan 10/18/2024: The patient was admitted to the [facility] ([facility] mental health unit) on q15 min checks (behavioral with suicide precautions) for safety. The patient will participate in group, recreational, and milieu therapies and will be offered additional individual and family sessions as clinically appropriate. -Start Fluoxetine 20mg daily -Start Eleele 300mg HS -Symptom questionnaires: mood disorder, KAYDEN scale, trauma questionnaire -Work on establishing outpatient care -She brought in leftover supply of insulin for which order has been written for it to be safely destroyed. Inventory Assets Strengths: supportive relationships, willing to get treatment Needs: safety and stabilization, medication adjustment, additional coping skills, increased outpatient services Suicide Risk Level Suicide Risk Level: High-Moderate (q15 min suicide checks) (depression with SI and s/p recent serious attempt but feels safe in the hospital and feels able to ask for support if needed) Risk Factors Assessment Male: No : Yes Do You Have Access To A Gun?: No Health Problems: No Mental Health Diagnoses: Yes Substance Use Disorders: No Previous Attempt: Yes Family History of Suicide: No Previous Psychiatric Hospitalization: Yes Hopelessness: Yes Protective Factors Assessment Responsible for Young Children: Yes Employed: No Stable Relationships: Yes Supportive Family: Yes Psychiatric History Identifying Data DANITA HOGUE is a 34-year-old woman who is currently unhoused with her children (ages 7-15), has a history of MDD, DAVID, PTSD, and was admitted on 10/17/24 21:18 on a 201 voluntary commitment for SI with plan of trying to overdose on insulin and s/p attempt via insulin overdose two weeks ago. Chief Complaint "I've been strong arming it for so long, I reached a point where it was too much". History of Present Illness She presents for psychiatric admission for worsening depression and SI with plan of insulin overdose in the context of multiple psychosocial stressors including no longer being able to afford the home she was renting (eviction notice was served two weeks ago before attempt), being a single mother, financial strain, challenges finding consistent work in recent months, and recent suicide attempt. Danita has been feeling very depressed and had made preparations to by suicide about two weeks ago including ensuring her children were in the care of her mother and then used a non-prescribed insulin pen on herself. She remains regretful that this attempt did not result in her and continues to have SI with plan and sought inpatient treatment to feeling that "I will do it again". She endorses a lot of anxiety, frequent fidgeting/restlessness, ruminative thoughts, panic attacks 1-4 times per week. Anxiety is exacerbated by her current living situation of staying at her mom's in recent weeks. She experiences constant running thoughts at night, fidgeting, and shaking. She endorses depressive symptoms including tearfulness, anhedonia, decreased motivation, self-guilt, helplessness, hopelessness, decreased energy, decreased appetite (lost 12 lbs in the last 3 months), and decreased sleep with difficulty falling and staying asleep (typically works 11pm-7am, slept a little better since quitting her job). SI has been occurring intermittently for many years but at times it becomes overwhelming as occurred in the context of losing her housing two weeks ago. She felt regretful after she survived the suicide attempt and decided them she needed to seek inpatient treatment. She continues to have flashbacks, avoidance, can be hypervigilant, sometimes has night terrors (occurs a few times per month), discomfort with physical touch, and describes being in a constant "fight or flight mode". She is not currently prescribed any psychiatric medications. She often struggles with medication adherence. Psychiatric ROS notable for no current nor history of symptoms of quinton, psychosis, OCD, nor self-harm. However she does report possible hypomanic episodes lasting a few days, characterized by increased productivity and elevated mood, followed by depressive episodes. Seasonal affective disorder is noted during winter months. 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 Past Psychiatric History Current Psychiatric Diagnosis: MDD with seasonal component, DAVID, PTSD Outpatient Services: none currently; [facility] in the past for psych and therapy Previous Psych Admissions: [facility] in January 2023 for SA via carbon monoxide poisoning Do You Have Access To A Gun?: No History of Previous Suicide Attempt: Yes Describe Attempts in the Past: CO poisoning in 2023, insulin OD in late Sep 2024 Past Medication Trials: Wellbutrin (up to 300mg daily, made her jittery) celexa 20mg daily Zoloft-had a spinning sensation Effexor Allergies Allergy/AdvReac Type Severity Reaction Status Date / Time No Known Drug Allergies Allergy Unknown . Verified 12/26/16 11:15 tree nut Allergy Unknown ANAPHYLAXIS Verified 12/26/16 11:15 Home Medications Medication Instructions Recorded Confirmed Type No Known Home Medications 10/17/24 10/17/24 History Family History Family History of: Depression (mother, maternal grandmother), Alcoholism/Drug Abuse (father) and Bipolar (paternal grandfather) Alcohol History Hx of Alcohol Use Over the Past 12 Months: Yes AUDIT Total Score: 4 sometimes drinks a 6 pack on the weekends, never with blackouts or problems with this Smoking Use Have You Smoked or Used Tobacco Products in the Last 30 Days: Yes tobacco type: cigarettes Smoking Status: Current every day smoker Smoking packs per day: 0.5 Substance History Hx of Prescription Med Misuse Over the Past 12 Months: No Hx of Over the Counter Med Misuse Over the Past 12 Months: No Hx of Inhalent Misuse Over the Past 12 Months: No Hx of Organic Substance Use Over the Past 12 Months: No Hx of Illegal Substances/Street Drug Use Over Past 12 Months: Yes (cocaine once in a while) Problems as a Result of Past Substance Use: None Identified A few times per year uses cocaine (likes that it makes her feel happy), last p rior to overdose attempt on insulin Personal History Living Arrangements: Home 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) Marital Status: (with partner for 8-9 years, haven't been together for 8 years) Beliefs That Will Affect Care: None Current Legal Problems: No Hx Legal Problems: No Hx Traumatic Life Events: Yes Patient History Medical History Varicella History of chlamydia infection Surgical History History of colposcopy Social History Smoking Status: Current every day smoker Tobacco Type: Cigarettes Do You Dip or Chew Tobacco: No; Preferred Language: Bots[place]an Communication Ability: Effective Lead Business Analyst Required: No Beliefs That Will Affect Care: None Feels Safe at Home: Yes Gender Identity: Female Assistive Devices: None Review of Systems Review of Systems: All systems reviewed & are unremarkable except as noted in HPI & below Physical Exam Psychiatric: Orientation: alert and oriented x 3 Apperance: appropriately dressed and appropriately groomed Eye Contact: good eye contact Motor Behavior: no abnormal motor movements Speech: normal rate/rhythm/volume of speech Affect: + depressed affect, + anxious affect and + tearful affect Mood: + depressed mood and + anxious mood Thought Process: goal directed thought process Thought Content: reality based without delusions Suicidal Thoughts: denies suicidal intent; + reports suicidal thoughts and + reports suicidal plan (none for hospital, outside to overdose on insulin) Homicidal Thoughts: denies homicidal thoughts Hallucinations: no auditory hallucinations and no visual hallucinations Cognition: recent memory grossly intact, remote memory grossly intact, attention grossly intact and language grossly intact Estimated Intelligence: consistent with education level Insight: + fair insight Judgment: + fair judgement Vital Signs (Past 24 Hours): Last Vital Signs Temp 36.6 C 10/18/24 06:30 Pulse 88 10/18/24 06:31 Resp 16 10/18/24 06:30 BP 129/87 10/18/24 06:31 Pulse Ox 97 10/17/24 21:47 O2 Del Method Room Air 10/17/24 21:47 Exam Statement: A physical exam was performed in the ED by Dr. Valencia for the purposes of medical clearance. I accept that physical as correct and adequate for the purposes of the inpatient physical exam. Results & Data ([facility]) Laboratory Results Laboratory Results - last 24 hr 10/17/24 10/17/24 10/17/24 18:45 19:30 20:28 WBC 8.51 RBC 4.26 Hgb 13.8 Hct 40.5 MCV 95.1 MCH 32.4 MCHC 34.1 RDW Std Deviation 42.1 RDW Coeff of Robert 12.0 Plt Count 327 MPV 9.9 Immature Gran % (Auto) 0.1 Neut % (Auto) 55.6 Lymph % (Auto) 30.2 [place] % (Auto) 7.3 Eos % (Auto) 6.2 Baso % (Auto) 0.6 Neut # (Auto) 4.73 Lymph # (Auto) 2.57 [place] # (Auto) 0.62 H Eos # (Auto) 0.53 H Baso # (Auto) 0.05 Immature Gran # (Auto) 0.01 Sodium 139 Potassium 4.0 Chloride 104 Carbon Dioxide 29 Anion Gap 6 BUN 15 Creatinine 0.84 Est Cr Clr Drug Dosing 94.2 eGFR 92.30 BUN/Creatinine Ratio 17.9 Glucose 95 Calcium 9.3 Total Bilirubin 0.5 AST 14 ALT 13 Alkaline Phosphatase 65 Total Protein 7.8 Albumin 4.9 Globulin 2.9 Albumin/Globulin Ratio 1.7 TSH 3.119 HCG, Qual Negative Urine Color Urine Appearance Urine pH Ur Specific [place] Urine Protein Urine Glucose (UA) Urine Ketones Urine Blood Urine Nitrite Urine Bilirubin Urine Urobilinogen Ur Leukocyte Esterase Urine WBC (Auto) Urine RBC (Auto) U Hyaline Cast (Auto) U Epithel Cells (Auto) Urine Bacteria (Auto) Salicylates < 3.0 L Urine Opiates Screen Neg Ur Methadone, Qual Neg Urine Fentanyl Screen Neg Acetaminophen < 3 L Urine Barbiturates Neg Ur Phencyclidine (PCP) Neg U Amphetamin/Meth Scrn Neg MDMA (Ecstasy) Screen Neg U Benzodiazepines Scrn Neg Ur Cocaine Metabolite Neg U Marijuana (THC) Screen Neg Ethyl Alcohol mg/dL < 10.0 SARS-CoV-2, RNA, NAAT NEGATIVE 10/17/24 Unknown WBC RBC Hgb Hct MCV MCH MCHC RDW Std Deviation RDW Coeff of Robert Plt Count MPV Immature Gran % (Auto) Neut % (Auto) Lymph % (Auto) [place] % (Auto) Eos % (Auto) Baso % (Auto) Neut # (Auto) Lymph # (Auto) [place] # (Auto) Eos # (Auto) Baso # (Auto) Immature Gran # (Auto) Sodium Potassium Chloride Carbon Dioxide Anion Gap BUN Creatinine Est Cr Clr Drug Dosing eGFR BUN/Creatinine Ratio Glucose Calcium Total Bilirubin AST ALT Alkaline Phosphatase Total Protein Albumin Globulin Albumin/Globulin Ratio TSH HCG, Qual Urine Color Yellow Urine Appearance Cloudy A Urine pH 6.0 Ur Specific [place] 1.025 Urine Protein Trace H Urine Glucose (UA) Negative Urine Ketones Trace H Urine Blood 3+ H Urine Nitrite Negative Urine Bilirubin Negative Urine Urobilinogen Negative Ur Leukocyte Esterase Trace H Urine WBC (Auto) 0-5 Urine RBC (Auto) >20 H U Hyaline Cast (Auto) 0-2 U Epithel Cells (Auto) 11-20 H Urine Bacteria (Auto) 2+ H Salicylates Urine Opiates Screen Ur Methadone, Qual Urine Fentanyl Screen Acetaminophen Urine Barbiturates Ur Phencyclidine (PCP) U Amphetamin/Meth Scrn MDMA (Ecstasy) Screen U Benzodiazepines Scrn Ur Cocaine Metabolite U Marijuana (THC) Screen Ethyl Alcohol mg/dL SARS-CoV-2, RNA, NAAT Current Inpatient Medications Current Inpatient Medications: Current Inpatient Medications Acetaminophen (Acetaminophen 325 Mg Tab) 650 mg PO Q4H PRN PRN Reason: Headache or Minor Fever Stop: 11/16/24 21:39 Al Hydrox/Mg Hydrox/Simethicone (Aluminum/Magnesium Susp 30 Ml Udc) 30 ml PO Q4H PRN PRN Reason: GI Upset Stop: 11/16/24 21:39 Bismuth Subsalicylate (Bismuth Subsalicylate 262 Mg Chew) 2 tab PO Q30M PRN PRN Reason: Loose Stool/Diarrhea Stop: 11/16/24 21:39 Hydroxyzine HCl (Hydroxyzine Hcl 25 Mg Tab) 50 mg PO HSZ PRN PRN Reason: Insomnia Stop: 11/16/24 21:39 Hydroxyzine HCl (Hydroxyzine Hcl 25 Mg Tab) 25 mg PO Q4H PRN PRN Reason: Anxiety Stop: 11/16/24 21:39 Magnesium Hydroxide (Magnesium Hydroxide Susp 30 Ml Udc) 30 ml PO DAILY PRN PRN Reason: Constipation Stop: 11/16/24 21:39 Miscellaneous (Remove Nicoderm Patch) 1 each N/A DAILY@0859 [facility] Stop: 11/17/24 08:58 Nicotine (Nicotine 21 Mg/24 Hr Tdsy) 1 patch TD QAM [facility] Stop: 11/16/24 19:29 Last Admin: 10/17/24 19:37 Dose: 1 patch Nicotine Polacrilex (Nicotine Polacrilex 2 Mg Gum) 2 piece MT PRN PRN PRN Reason: Nicotine Withdrawal Symptoms Stop: 11/16/24 21:39 Last Admin: 10/17/24 22:11 Dose: 2 piece Sodium Chloride (Sodium Chloride 0.65% Na Soln 45 Ml ([place])) 1 - 2 sprays NA PRN PRN PRN Reason: Nasal Dryness/Congestion Stop: 11/16/24 21:39
[2024-10-18] MEDS: FLUoxetine HCL 20 MG CAP PO SCH (14:27)
[2024-10-18] MEDS ORDERED: DESTROY THIS MEDICATION ONE (15:21)
[2024-10-18] MEDS: LITHIUM CARBONATE 300 MG TAB PO SCH (20:52)
[2024-10-18] MEDS: hydrOXYzine HCl 25 MG TAB PO PRN (20:52)
[2024-10-19] MEDS: ACETAMINOPHEN 325 MG TAB PO PRN (08:37)
--- NOTE | 2024-10-19 09:05 | Psychiatric Progress Note ---
Date of Service October 19, 2024 Impression / Recommendations Impression AUTUMN HOGUE is a 34-year-old woman who is currently unhoused with her children (ages 7-15), has a history of MDD, DAVID, PTSD, and was admitted on 10/17/24 21:18 on a 201 voluntary commitment for SI with plan of trying to overdose on insulin and s/p attempt via insulin overdose two weeks ago. Diagnostically consistent with unspecified depression with differential including bipolar affective disorder type II current depressive episode vs major depressive disorder, recurrent severe as well as DAVID with panic attacks and PTSD. Suspect insomnia is multifactorial including difficulty due to variable overnight shift-work schedule as well as DAVID, depression and PTSD. A: Ongoing depression, working to try to address and lessen some psychosocial stressors but attempting to establish robust aftercare, she was referred for outpatient case management services today. She would like to start clonidine at HS for off-label use for sleep and anxiety, reviewed side effects including but not limited to low BP/syncope. Symptom questionnaires consistent with likely BPAD type II and PTSD. Overall, I spent a total of 35 minutes on this case including meeting with the patient, reviewing the chart, nursing report, multidisciplinary team meeting, orders, and documentation. (1) Depression with suicidal ideation: (2) Generalized anxiety disorder with panic attacks: (3) Post traumatic stress disorder (PTSD): (4) Bipolar II disorder with seasonal pattern: (5) Psychosocial stressors: (6) Housing insecurity: (7) Sleep disorder, shift-work: (8) Insomnia: Plan 10/19/2024: -Start clonidine 0.1mg HS 10/18/2024: The patient was admitted to the [facility] ([facility] mental health unit) on q15 min checks (behavioral with suicide precautions) for safety. The patient will participate in group, recreational, and milieu therapies and will be offered additional individual and family sessions as clinically appropriate. -Start Fluoxetine 20mg daily -Start Laverne 300mg HS -Symptom questionnaires: mood disorder, KAYDEN scale, trauma questionnaire -Work on establishing outpatient care -She brought in leftover supply of insulin for which order has been written for it to be safely destroyed. Inventory Assets Strengths: supportive relationships, willing to get treatment Needs: safety and stabilization, medication adjustment, additional coping skills, increased outpatient services Suicide Risk Level Suicide Risk Level: High-Moderate (q15 min suicide checks) (depression with SI and s/p recent serious attempt but feels safe in the hospital and feels able to ask for support if needed) Risk Factors Assessment Male: No : Yes Do You Have Access To A Gun?: No Health Problems: No Mental Health Diagnoses: Yes Substance Use Disorders: No Previous Attempt: Yes Family History of Suicide: No Previous Psychiatric Hospitalization: Yes Hopelessness: Yes Protective Factors Assessment Responsible for Young Children: Yes Employed: No Stable Relationships: Yes Supportive Family: Yes Interval History Identifying Information AUTUMN HOGUE is a 34-year-old woman who is currently unhoused with her children (ages 7-15), has a history of MDD, DAVID, PTSD, and was admitted on 10/17/24 21:18 on a 201 voluntary commitment for SI with plan of trying to overdose on insulin and s/p attempt via insulin overdose two weeks ago. Chief Complaint "ok, I didn't sleep great". Review of Systems Sleep Information Total Hours of Sleep: 7.25 Meal Information Percent Meal Consumed - Dinner: 75 Subjective Subjective Patient was seen & assessed and interval progress reviewed with treatment team. Attended some afternoon and evening groups. Slept poorly overnight, took prn V istaril but still took awhile to fall asleep and then awake frequently. Today has some loose stools and headache (which she attributes to caffeine withdrawal) but no other medication side effects. Reviewed her symptom questionnaires-she agrees with diagnosis of PTSD and BPAD type II. Physical Exam Psychiatric Orientation: alert and oriented x 3 Apperance: appropriately dressed and appropriately groomed Eye Contact: good eye contact Motor Behavior: no abnormal motor movements Speech: normal rate/rhythm/volume of speech Affect: + depressed affect and + constricted affect Mood: + depressed mood and + anxious mood Thought Process: goal directed thought process Thought Content: reality based without delusions Suicidal Thoughts: denies suicidal intent; + reports suicidal thoughts and + reports suicidal plan (none for hospital, outside to overdose on insulin) Homicidal Thoughts: denies homicidal thoughts Hallucinations: no auditory hallucinations and no visual hallucinations Cognition: recent memory grossly intact, remote memory grossly intact, attention grossly intact and language grossly intact Estimated Intelligence: consistent with education level Insight: + fair insight Judgment: + fair judgement Vital Signs (Past 24 Hours) Last Vital Signs Temp 36.5 C 10/19/24 06:33 Pulse 79 10/19/24 06:34 Resp 16 10/19/24 06:33 BP 130/89 10/19/24 06:34 Pulse Ox 97 10/17/24 21:47 O2 Del Method Room Air 10/17/24 21:47 Results & Data ([facility]) Current Inpatient Medications Current Inpatient Medications: Current Inpatient Medications Acetaminophen (Acetaminophen 325 Mg Tab) 650 mg PO Q4H PRN PRN Reason: Headache or Minor Fever Stop: 11/16/24 21:39 Last Admin: 10/19/24 08:37 Dose: 650 mg Al Hydrox/Mg Hydrox/Simethicone (Aluminum/Magnesium Susp 30 Ml Udc) 30 ml PO Q4H PRN PRN Reason: GI Upset Stop: 11/16/24 21:39 Bismuth Subsalicylate (Bismuth Subsalicylate 262 Mg Chew) 2 tab PO Q30M PRN PRN Reason: Loose Stool/Diarrhea Stop: 11/16/24 21:39 Fluoxetine HCl (Fluoxetine Hcl 20 Mg Cap) 20 mg PO QAM [facility] Stop: 11/17/24 12:59 Last Admin: 10/19/24 08:38 Dose: 20 mg Hydroxyzine HCl (Hydroxyzine Hcl 25 Mg Tab) 50 mg PO HSZ PRN PRN Reason: Insomnia Stop: 11/16/24 21:39 Last Admin: 10/18/24 20:52 Dose: 50 mg Hydroxyzine HCl (Hydroxyzine Hcl 25 Mg Tab) 25 mg PO Q4H PRN PRN Reason: Anxiety Stop: 11/16/24 21:39 [place] Carbonate ([place] Carbonate 300 Mg Tab) 300 mg PO HS [facility] Stop: 11/17/24 21:59 Last Admin: 10/18/24 20:52 Dose: 300 mg Magnesium Hydroxide (Magnesium Hydroxide Susp 30 Ml Udc) 30 ml PO DAILY PRN PRN Reason: Constipation Stop: 11/16/24 21:39 Miscellaneous (Remove Nicoderm Patch) 1 each N/A DAILY@0859 [facility] Stop: 11/17/24 08:58 Last Admin: 10/19/24 08:39 Dose: 1 each Nicotine (Nicotine 21 Mg/24 Hr Tdsy) 1 patch TD QAM [facility] Stop: 11/16/24 19:29 Last Admin: 10/19/24 08:38 Dose: 1 patch Nicotine Polacrilex (Nicotine Polacrilex 2 Mg Gum) 2 piece MT PRN PRN PRN Reason: Nicotine Withdrawal Symptoms Stop: 11/16/24 21:39 Last Admin: 10/18/24 17:49 Dose: 2 piece Sodium Chloride (Sodium Chloride 0.65% Na Soln 45 Ml ([place])) 1 - 2 sprays NA PRN PRN PRN Reason: Nasal Dryness/Congestion Stop: 11/16/24 21:39 Mental Health & Subst Abuse Tx Therapist Name of Therapist: AMANUEL Gas Meter Installer Name of Gas Meter Installer: AMANUEL
[2024-10-19] MEDS: cloNIDine HCL 0.1 MG TAB PO SCH (21:10)
[2024-10-19] MEDS: ALUMINUM/MAGNESIUM SUSP 30 ML UDC PO PRN (21:39)
--- NOTE | 2024-10-20 09:15 | Psychiatric Progress Note ---
Date of Service October 20, 2024 Impression / Recommendations Impression AUTUMN HOGUE is a 34-year-old woman who is currently unhoused with her children (ages 7-15), has a history of MDD, DAVID, PTSD, and was admitted on 10/17/24 21:18 on a 201 voluntary commitment for SI with plan of trying to overdose on insulin and s/p attempt via insulin overdose two weeks ago. Diagnostically consistent with unspecified depression with differential including bipolar affective disorder type II current depressive episode vs major depressive disorder, recurrent severe as well as DAVID with panic attacks and PTSD. Suspect insomnia is multifactorial including difficulty due to variable overnight shift-work schedule as well as DAVID, depression and PTSD. A: Ongoing depression and periods of anxiety with associated elevated BP. Tolerated clonidine addition well but without benefit for sleep. Will start mirtazapine with goal for short-term use until fluoxetine takes effect. Reviewed side effects including but not limited to sedation, weight gain. Overall, I spent a total of 35 minutes on this case including meeting with the patient, reviewing the chart, nursing report, multidisciplinary team meeting, orders, and documentation. (1) Depression with suicidal ideation: (2) Generalized anxiety disorder with panic attacks: (3) Post traumatic stress disorder (PTSD): (4) Bipolar II disorder with seasonal pattern: (5) Psychosocial stressors: (6) Housing insecurity: (7) Sleep disorder, shift-work: (8) Insomnia: Plan 10/20/2024: -Start mirtazapine 15mg HS -Schedule Vit D and Li level for morning of 10/23/2024 10/19/2024: -Start clonidine 0.1mg HS 10/18/2024: The patient was admitted to the [facility] ([facility] mental health unit) on q15 min checks (behavioral with suicide precautions) for safety. The patient will participate in group, recreational, and milieu therapies and will be offered additional individual and family sessions as clinically appropriate. -Start Fluoxetine 20mg daily -Start [place] 300mg HS -Symptom questionnaires: mood disorder, KAYDEN scale, trauma questionnaire -Work on establishing outpatient care -She brought in leftover supply of insulin for which order has been written for it to be safely destroyed. Inventory Assets Strengths: supportive relationships, willing to get treatment Needs: safety and stabilization, medication adjustment, additional coping skills, increased outpatient services Suicide Risk Level Suicide Risk Level: High-Moderate (q15 min suicide checks) (depression with SI and s/p recent serious attempt but feels safe in the hospital and feels able to ask for support if needed) Risk Factors Assessment Male: No : Yes Do You Have Access To A Gun?: No Health Problems: No Mental Health Diagnoses: Yes Substance Use Disorders: No Previous Attempt: Yes Family History of Suicide: No Previous Psychiatric Hospitalization: Yes Hopelessness: Yes Protective Factors Assessment Responsible for Young Children: Yes Employed: No Stable Relationships: Yes Supportive Family: Yes Interval History Identifying Information AUTUMN HOGUE is a 34-year-old woman who is currently unhoused with her children (ages 7-15), has a history of MDD, DAVID, PTSD, and was admitted on 10/17/24 21:18 on a 201 voluntary commitment for SI with plan of trying to overdose on insulin and s/p attempt via insulin overdose two weeks ago. Chief Complaint "Pretty good, last night was bad and this morning but I'm feeling a little better now". Review of Systems Sleep Information Total Hours of Sleep: 5.75 Meal Information Percent Meal Consumed - Breakfast: 75 Percent Meal Consumed - Lunch: 75 Percent Meal Consumed - Dinner: 75 Subjective Subjective Patient was seen & assessed and interval progress reviewed with nursing and social work. Attending groups. BP was quite elevated last evening so received clonidine early and it improved. Normal BP this morning. Last night had a lot of anxiety due to difficulty sleeping and intrusive SI with thoughts of walking into a train. Struggled with sleep even after clonidine addition. She does like the clonidine helped her blood pressure, would like to continue this. This morning had a trauma response due to checks and vitals so struggled to sleep after that too. Headache today which she attributes to some c affeine withdrawal but it responds to tylenol. No further GI symptoms. No new medication side effects. She'd like to try mirtazapine tonight for sleep. Physical Exam Psychiatric Orientation: alert and oriented x 3 Apperance: appropriately dressed and appropriately groomed Eye Contact: good eye contact Motor Behavior: no abnormal motor movements Speech: normal rate/rhythm/volume of speech Affect: + depressed affect and + constricted affect Mood: + depressed mood and + anxious mood Thought Process: goal directed thought process Thought Content: reality based without delusions Suicidal Thoughts: denies suicidal intent; + reports suicidal thoughts and + reports suicidal plan (none for hospital, outside to overdose on insulin or walk into train) Homicidal Thoughts: denies homicidal thoughts Hallucinations: no auditory hallucinations and no visual hallucinations Cognition: recent memory grossly intact, remote memory grossly intact, attention grossly intact and language grossly intact Estimated Intelligence: consistent with education level Insight: + fair insight Judgment: + fair judgement Vital Signs (Past 24 Hours) Last Vital Signs Temp 36.5 C 10/20/24 06:00 Pulse 82 10/20/24 06:38 Resp 20 10/20/24 06:00 BP 117/80 10/20/24 06:38 Pulse Ox 97 10/20/24 06:00 O2 Del Method Room Air 10/20/24 06:00 Results & Data ([facility]) Current Inpatient Medications Current Inpatient Medications: Current Inpatient Medications Acetaminophen (Acetaminophen 325 Mg Tab) 650 mg PO Q4H PRN PRN Reason: Headache or Minor Fever Stop: 11/16/24 21:39 Last Admin: 10/19/24 08:37 Dose: 650 mg Al Hydrox/Mg Hydrox/Simethicone (Aluminum/Magnesium Susp 30 Ml Udc) 30 ml PO Q4H PRN PRN Reason: GI Upset Stop: 11/16/24 21:39 Last Admin: 10/19/24 21:39 Dose: 30 ml Bismuth Subsalicylate (Bismuth Subsalicylate 262 Mg Chew) 2 tab PO Q30M PRN PRN Reason: Loose Stool/Diarrhea Stop: 11/16/24 21:39 Clonidine HCl (Clonidine Hcl 0.1 Mg Tab) 0.1 mg PO HS W[facility]SON Stop: 11/18/24 21:59 Last Admin: 10/19/24 21:10 Dose: 0.1 mg Fluoxetine HCl (Fluoxetine Hcl 20 Mg Cap) 20 mg PO QAM [facility] Stop: 11/17/24 12:59 Last Admin: 10/20/24 09:12 Dose: 20 mg Hydroxyzine HCl (Hydroxyzine Hcl 25 Mg Tab) 50 mg PO HSZ PRN PRN Reason: Insomnia Stop: 11/16/24 21:39 Last Admin: 10/19/24 21:39 Dose: 50 mg Hydroxyzine HCl (Hydroxyzine Hcl 25 Mg Tab) 25 mg PO Q4H PRN PRN Reason: Anxiety Stop: 11/16/24 21:39 Sylvester Carbonate (Sylvester Carbonate 300 Mg Tab) 300 mg PO HS WILSON Stop: 11/17/24 21:59 Last Admin: 10/19/24 21:10 Dose: 300 mg Magnesium Hydroxide (Magnesium Hydroxide Susp 30 Ml Udc) 30 ml PO DAILY PRN PRN Reason: Constipation Stop: 11/16/24 21:39 Miscellaneous (Remove Nicoderm Patch) 1 each N/A DAILY@0859 [facility] Stop: 11/17/24 08:58 Last Admin: 10/20/24 09:12 Dose: 1 each Nicotine (Nicotine 21 Mg/24 Hr Tdsy) 1 patch TD QAM [facility] Stop: 11/16/24 19:29 Last Admin: 10/20/24 09:12 Dose: 1 patch Nicotine Polacrilex (Nicotine Polacrilex 2 Mg Gum) 2 piece MT PRN PRN PRN Reason: Nicotine Withdrawal Symptoms Stop: 11/16/24 21:39 Last Admin: 10/18/24 17:49 Dose: 2 piece Sodium Chloride (Sodium Chloride 0.65% Na Soln 45 Ml ([employer])) 1 - 2 sprays NA PRN PRN PRN Reason: Nasal Dryness/Congestion Stop: 11/16/24 21:39 Mental Health & Subst Abuse Tx Therapist Name of Therapist: Shabana Bergman Therapist's Freight And Passenger Agent Name of Freight And Passenger Agent: Edgardo [employer]me Phone Number for Freight And Passenger Agent: [phone] Case Management Appointment Comment: CM will call you to sched (fax summary to [phone] to Omayra) Post Discharge Appointments Primary Care Physician Name Of Family Doctor/PCP: Shabana [facility]man [facility]
[2024-10-20] MEDS: MIRTAZAPINE TAB 15 MG TAB PO SCH (20:53)
[2024-10-21] MEDS: CEROVITE ADV FORMULA TAB PO SCH (09:25)
--- NOTE | 2024-10-21 09:36 | Psychiatric Progress Note ---
Date of Service October 21, 2024 Impression / Recommendations Impression AUTUMN HOGUE is a 34-year-old woman who is currently unhoused with her children (ages 7-15), has a history of MDD, DAVID, PTSD, and was admitted on 10/17/24 21:18 on a 201 voluntary commitment for SI with plan of trying to overdose on insulin and s/p attempt via insulin overdose two weeks ago. Diagnostically consistent with unspecified depression with differential including bipolar affective disorder type II current depressive episode vs major depressive disorder, recurrent severe as well as DAVID with panic attacks and PTSD. Suspect insomnia is multifactorial including difficulty due to variable overnight shift-work schedule as well as DAVID, depression and PTSD. A: Ongoing depression and increased anxiety as well as increased PTSD symptoms in context of dysregulated peer on the unit and ongoing external stressors. Did sleep better with addition of mirtazapine. Tolerating current medications. Overall, I spent a total of 45 minutes on this case including meeting with the patient, reviewing the chart, nursing report, multidisciplinary team meeting, orders, and documentation. (1) Depression with suicidal ideation: (2) Generalized anxiety disorder with panic attacks: (3) Post traumatic stress disorder (PTSD): (4) Bipolar II disorder with seasonal pattern: (5) Psychosocial stressors: (6) Housing insecurity: (7) Sleep disorder, shift-work: (8) Insomnia: Plan 10/21/2024: -Continue current medications and tx plan 10/20/2024: -Start mirtazapine 15mg HS -Schedule Vit D and Li level for morning of 10/23/2024 10/19/2024: -Start clonidine 0.1mg HS 10/18/2024: The patient was admitted to the [facility] ([facility] mental health unit) on q15 min checks (behavioral with suicide precautions) for safety. The patient will participate in group, recreational, and milieu therapies and will be offered additional individual and family sessions as clinically appropriate. -Start Fluoxetine 20mg daily -Start [place] 300mg HS -Symptom questionnaires: mood disorder, KAYDEN scale, trauma questionnaire -Work on establishing outpatient care -She brought in leftover supply of insulin for which order has been written for it to be safely destroyed. Inventory Assets Strengths: supportive relationships, willing to get treatment Needs: safety and stabilization, medication adjustment, additional coping skills, increased outpatient services Suicide Risk Level Suicide Risk Level: High-Moderate (q15 min suicide checks) (depression with SI and s/p recent serious attempt but feels safe in the hospital and feels able to ask for support if needed) Risk Factors Assessment Male: No : Yes Do You Have Access To A Gun?: No Health Problems: No Mental Health Diagnoses: Yes Substance Use Disorders: No Previous Attempt: Yes Family History of Suicide: No Previous Psychiatric Hospitalization: Yes Hopelessness: Yes Protective Factors Assessment Responsible for Young Children: Yes Employed: No Stable Relationships: Yes Supportive Family: Yes Interval History Identifying Information AUTUMN HOGUE is a 34-year-old woman who is currently unhoused with her children (ages 7-15), has a history of MDD, DAVID, PTSD, and was admitted on 10/17/24 21:18 on a 201 voluntary commitment for SI with plan of trying to overdose on insulin and s/p attempt via insulin overdose two weeks ago. Chief Complaint "I'm scared, I know nothing I'll eventually be going back to will change". Review of Systems Sleep Information Total Hours of Sleep: 5.75 Meal Information Percent Meal Consumed - Breakfast: 75 Percent Meal Consumed - Lunch: 50 Percent Meal Consumed - Dinner: 75 Subjective Subjective Patient was seen & assessed and interval progress reviewed with treatment team. Attending groups, rated mood as anxious. Taylor tired after taking mirtazapine and was able to fall asleep quickly. Still with some overnight awakenings but not as many. Side effect of dry mouth this morning. Had some increased anxiety and trauma symptoms after peer on the unit was verbally and behaviorally dysregulated. Ongoing periods of SI. Still gets overwhelmed easily at the thought of managing all of her stressors. Physical Exam Psychiatric Orientation: alert and oriented x 3 Apperance: appropriately dressed and appropriately groomed Eye Contact: good eye contact Motor Behavior: no abnormal motor movements Speech: normal rate/rhythm/volume of speech Affect: + depressed affect and + constricted affect Mood: + depressed mood and + anxious mood Thought Process: goal directed thought process Thought Content: reality based without delusions Suicidal Thoughts: denies suicidal intent; + reports suicidal thoughts and + reports suicidal plan (none for hospital, outside to overdose on insulin or walk into train) Homicidal Thoughts: denies homicidal thoughts Hallucinations: no auditory hallucinations and no visual hallucinations Cognition: recent memory grossly intact, remote memory grossly intact, attention grossly intact and language grossly intact Estimated Intelligence: consistent with education level Insight: good insight Judgment: + fair judgement Vital Signs (Past 24 Hours) Last Vital Signs Temp 36.6 C 10/21/24 06:41 Pulse 78 10/21/24 06:42 Resp 16 10/21/24 06:41 BP 111/78 10/21/24 06:42 Pulse Ox 97 10/20/24 06:00 O2 Del Method Room Air 10/20/24 06:00 Results & Data ([facility]) Current Inpatient Medications Current Inpatient Medications: Current Inpatient Medications Acetaminophen (Acetaminophen 325 Mg Tab) 650 mg PO Q4H PRN PRN Reason: Headache or Minor Fever Stop: 11/16/24 21:39 Last Admin: 10/20/24 16:34 Dose: 650 mg Al Hydrox/Mg Hydrox/Simethicone (Aluminum/Magnesium Susp 30 Ml Udc) 30 ml PO Q4H PRN PRN Reason: GI Upset Stop: 11/16/24 21:39 Last Admin: 10/20/24 20:53 Dose: 30 ml Bismuth Subsalicylate (Bismuth Subsalicylate 262 Mg Chew) 2 tab PO Q30M PRN PRN Reason: Loose Stool/Diarrhea Stop: 11/16/24 21:39 Clonidine HCl (Clonidine Hcl 0.1 Mg Tab) 0.1 mg PO HS WILSON Stop: 11/18/24 21:59 Last Admin: 10/20/24 20:52 Dose: 0.1 mg Fluoxetine HCl (Fluoxetine Hcl 20 Mg Cap) 20 mg PO QAM [facility] Stop: 11/17/24 12:59 Last Admin: 10/21/24 09:25 Dose: 20 mg Hydroxyzine HCl (Hydroxyzine Hcl 25 Mg Tab) 50 mg PO HSZ PRN PRN Reason: Insomnia Stop: 11/16/24 21:39 Last Admin: 10/20/24 21:55 Dose: 50 mg Hydroxyzine HCl (Hydroxyzine Hcl 25 Mg Tab) 25 mg PO Q4H PRN PRN Reason: Anxiety Stop: 11/16/24 21:39 [place] Carbonate ([place] Carbonate 300 Mg Tab) 300 mg PO HS WILSON Stop: 11/17/24 21:59 Last Admin: 10/20/24 20:52 Dose: 300 mg Magnesium Hydroxide (Magnesium Hydroxide Susp 30 Ml Udc) 30 ml PO DAILY PRN PRN Reason: Constipation Stop: 11/16/24 21:39 Mirtazapine (Mirtazapine Tab 15 Mg Tab) 15 mg PO HS WILSON Stop: 11/19/24 21:59 Last Admin: 10/20/24 20:53 Dose: 15 mg Miscellaneous (Remove Nicoderm Patch) 1 each N/A DAILY@0859 [facility] Stop: 11/17/24 08:58 Last Admin: 10/21/24 09:25 Dose: 1 each Multivitamins/Minerals (Cerovite Adv Formula Tab) 1 tab PO QAM [facility] Stop: 11/20/24 08:59 Last Admin: 10/21/24 09:25 Dose: 1 tab Nicotine (Nicotine 21 Mg/24 Hr Tdsy) 1 patch TD QAM [facility] Stop: 11/16/24 19:29 Last Admin: 10/21/24 09:24 Dose: 1 patch Nicotine Polacrilex (Nicotine Polacrilex 2 Mg Gum) 2 piece MT PRN PRN PRN Reason: Nicotine Withdrawal Symptoms Stop: 11/16/24 21:39 Last Admin: 10/20/24 18:33 Dose: 2 piece Sodium Chloride (Sodium Chloride 0.65% Na Soln 45 Ml ([place])) 1 - 2 sprays NA PRN PRN PRN Reason: Nasal Dryness/Congestion Stop: 11/16/24 21:39 Mental Health & Subst Abuse Tx Therapist Name of Therapist: Shabana Bergman Therapist's Cloth Examiner Hand Name of Cloth Examiner Hand: Edgardo quitchen Phone Number for Cloth Examiner Hand: [phone] Case Management Appointment Comment: STANISLAW will call you to dayday (fax summary to [phone] to Omayra) Post Discharge Appointments Primary Care Physician Name Of Family Doctor/PCP: Shabana Bergman [facility]
[2024-10-21] MEDS: FAMOTIDINE 40 MG TABLET PO SCH (15:10)
--- NOTE | 2024-10-22 09:53 | Psychiatric Progress Note ---
Date of Service October 22, 2024 Impression / Recommendations Impression AUTUMN HOGUE is a 34-year-old woman who is currently unhoused with her children (ages 7-15), has a history of MDD, DAVID, PTSD, and was admitted on 10/17/24 21:18 on a 201 voluntary commitment for SI with plan of trying to overdose on insulin and s/p attempt via insulin overdose two weeks ago. Diagnostically consistent with unspecified depression with differential including bipolar affective disorder type II current depressive episode vs major depressive disorder, recurrent severe as well as DAVID with panic attacks and PTSD. Suspect insomnia is multifactorial including difficulty due to variable overnight shift-work schedule as well as DAVID, depression and PTSD. A: Ongoing depression and increased anxiety as well as increased PTSD symptoms in context of dysregulated peer on the unit and ongoing external stressors. Did sleep better with addition of mirtazapine. Tolerating current medications. Overall, I spent a total of 45 minutes on this case including meeting with the patient, reviewing the chart, nursing report, multidisciplinary team meeting, orders, and documentation. (1) Depression with suicidal ideation: (2) Generalized anxiety disorder with panic attacks: (3) Post traumatic stress disorder (PTSD): (4) Bipolar II disorder with seasonal pattern: (5) Psychosocial stressors: (6) Housing insecurity: (7) Sleep disorder, shift-work: (8) Insomnia: Plan 10/21/2024: -Continue current medications and tx plan 10/20/2024: -Start mirtazapine 15mg HS -Schedule Vit D and Li level for morning of 10/23/2024 10/19/2024: -Start clonidine 0.1mg HS 10/18/2024: The patient was admitted to the [facility] ([facility] unit) on q15 min checks (behavioral with suicide precautions) for safety. The patient will participate in group, recreational, and milieu therapies and will be offered additional individual and family sessions as clinically appropriate. -Start Fluoxetine 20mg daily -Start [place] 300mg HS -Symptom questionnaires: mood disorder, KAYDEN scale, trauma questionnaire -Work on establishing outpatient care -She brought in leftover supply of insulin for which order has been written for it to be safely destroyed. Inventory Assets Strengths: supportive relationships, willing to get treatment Needs: safety and stabilization, medication adjustment, additional coping skills, increased outpatient services Suicide Risk Level Suicide Risk Level: High-Moderate (q15 min suicide checks) (depression with SI and s/p recent serious attempt but feels safe in the hospital and feels able to ask for support if needed) Risk Factors Assessment Male: No : Yes Do You Have Access To A Gun?: No Health Problems: No Mental Health Diagnoses: Yes Substance Use Disorders: No Previous Attempt: Yes Family History of Suicide: No Previous Psychiatric Hospitalization: Yes Hopelessness: Yes Protective Factors Assessment Responsible for Young Children: Yes Employed: No Stable Relationships: Yes Supportive Family: Yes Interval History Identifying Information AUTUMN HOGUE is a 34-year-old woman who is currently unhoused with her children (ages 7-15), has a history of MDD, DAVID, PTSD, and was admitted on 10/17/24 21:18 on a 201 voluntary commitment for SI with plan of trying to overdose on insulin and s/p attempt via insulin overdose two weeks ago. Chief Complaint "[]". Review of Systems Sleep Information Total Hours of Sleep: 6 Meal Information Percent Meal Consumed - Breakfast: 75 Percent Meal Consumed - Lunch: 50 Percent Meal Consumed - Dinner: 75 Subjective Subjective Patient was seen & assessed and interval progress reviewed with nursing and social work. She has a history of MDD, DAVID, PTSD. A diagnosis of Bipolar Disorder 2 was made during this admission. She had made an intentional, planned suicide attempt by insulin overdose in context of recent housing instability. She had begun planning her suicide in August 2024, after getting notice that her rented apartment was being sold. This was the second attempt in less than 2 years. In January 2023, under similar conditions of financial stress, she attempted to asphyxiate herself using carbon monoxide. That attempt was also a planned, serious, researched attempt in which she taped a hose to her exhaust and taped the windows shut while waiting in car parking lot for the smoke to take effect. At this time, she feels safe, reports mood is improved. Denied medication side effects, SI, intent or plan. She denied flashbacks or nightmares at this time. Physical Exam Psychiatric Orientation: alert and oriented x 3 Apperance: appropriately dressed and appropriately groomed Eye Contact: good eye contact Motor Behavior: no abnormal motor movements Speech: normal rate/rhythm/volume of speech Affect: + depressed affect, + anxious affect, + tearful affect and + constricted affect Mood: + depressed mood and + anxious mood Thought Process: goal directed thought process Thought Content: reality based without delusions Suicidal Thoughts: denies suicidal intent; + reports suicidal thoughts and + reports suicidal plan (none for hospital, outside to overdose on insulin or walk into train) Homicidal Thoughts: denies homicidal thoughts Hallucinations: no auditory hallucinations and no visual hallucinations Cognition: recent memory grossly intact, remote memory grossly intact, attention grossly intact and language grossly intact Estimated Intelligence: consistent with education level Insight: good insight and + fair insight Judgment: + fair judgement Vital Signs (Past 24 Hours) Last Vital Signs Temp 36.7 C 10/22/24 06:32 Pulse 80 10/22/24 06:32 Resp 16 10/22/24 06:32 BP 111/73 10/22/24 06:32 Pulse Ox 97 10/20/24 06:00 O2 Del Method Room Air 10/20/24 06:00 [facility] Current Inpatient Medications Current Inpatient Medications: Current Inpatient Medications Acetaminophen (Acetaminophen 325 Mg Tab) 650 mg PO Q4H PRN PRN Reason: Headache or Minor Fever Stop: 11/16/24 21:39 Last Admin: 10/21/24 22:25 Dose: 650 mg Al Hydrox/Mg Hydrox/Simethicone (Aluminum/Magnesium Susp 30 Ml Udc) 30 ml PO Q4H PRN PRN Reason: GI Upset Stop: 11/16/24 21:39 Last Admin: 10/20/24 20:53 Dose: 30 ml Bismuth Subsalicylate (Bismuth Subsalicylate 262 Mg Chew) 2 tab PO Q30M PRN PRN Reason: Loose Stool/Diarrhea Stop: 11/16/24 21:39 Clonidine HCl (Clonidine Hcl 0.1 Mg Tab) 0.1 mg PO HS [place] Stop: 11/18/24 21:59 Last Admin: 10/21/24 21:15 Dose: 0.1 mg Famotidine (Famotidine 40 Mg Tablet) 40 mg PO QAM [place] Stop: 11/20/24 14:59 Last Admin: 10/22/24 09:36 Dose: 40 mg Fluoxetine HCl (Fluoxetine Hcl 20 Mg Cap) 20 mg PO QAM [place] Stop: 11/17/24 12:59 Last Admin: 10/22/24 09:36 Dose: 20 mg Hydroxyzine HCl (Hydroxyzine Hcl 25 Mg Tab) 50 mg PO HSZ PRN PRN Reason: Insomnia Stop: 11/16/24 21:39 Last Admin: 10/20/24 21:55 Dose: 50 mg Hydroxyzine HCl (Hydroxyzine Hcl 25 Mg Tab) 25 mg PO Q4H PRN PRN Reason: Anxiety Stop: 11/16/24 21:39 [place] Carbonate ([place] Carbonate 300 Mg Tab) 300 mg PO HS [place] Stop: 11/17/24 21:59 Last Admin: 10/21/24 21:15 Dose: 300 mg Magnesium Hydroxide (Magnesium Hydroxide Susp 30 Ml Udc) 30 ml PO DAILY PRN PRN Reason: Constipation Stop: 11/16/24 21:39 Mirtazapine (Mirtazapine Tab 15 Mg Tab) 15 mg PO HS [place] Stop: 11/19/24 21:59 Last Admin: 10/21/24 22:24 Dose: 15 mg Miscellaneous (Remove Nicoderm Patch) 1 each N/A DAILY@0859 [facility] Stop: 11/17/24 08:58 Last Admin: 10/22/24 09:36 Dose: 1 each Multivitamins/Minerals (Cerovite Adv Formula Tab) 1 tab PO QAM [place] Stop: 11/20/24 08:59 Last Admin: 10/22/24 09:36 Dose: 1 tab Nicotine (Nicotine 21 Mg/24 Hr Tdsy) 1 patch TD QAM [place] Stop: 11/16/24 19:29 Last Admin: 10/22/24 09:36 Dose: 1 patch Nicotine Polacrilex (Nicotine Polacrilex 2 Mg Gum) 2 piece MT PRN PRN PRN Reason: Nicotine Withdrawal Symptoms Stop: 11/16/24 21:39 Last Admin: 10/20/24 18:33 Dose: 2 piece Sodium Chloride (Sodium Chloride 0.65% Na Soln 45 Ml ([place])) 1 - 2 sprays NA PRN PRN PRN Reason: Nasal Dryness/Congestion Stop: 11/16/24 21:39 Mental Health & Subst Abuse Tx Therapist Name of Therapist: Shabana Bergman Therapist's Parts Analyst Name of Parts Analyst: [email or web address] Phone Number for Parts Analyst: [phone] Case Management Appointment Comment: CM will call you to dayday (fax summary to [phone] to Omayra) Post Discharge Appointments Primary Care Physician Name Of Family Doctor/PCP: Shabana [facility]
--- NOTE | 2024-10-22 10:49 | Psychiatric Progress Note ---
Date of Service October 22, 2024 Impression / Recommendations Impression AUTUMN HOGUE is a 34-year-old woman who is currently unhoused with her children (ages 7-15), has a history of MDD, DAVID, PTSD, and was admitted on 10/17/24 21:18 on a 201 voluntary commitment for SI with plan of trying to overdose on insulin and s/p attempt via insulin overdose two weeks ago. Diagnostically consistent with unspecified depression with differential including bipolar affective disorder type II current depressive episode vs major depressive disorder, recurrent severe as well as DAVID with panic attacks and PTSD. Suspect insomnia is multifactorial including difficulty due to variable overnight shift-work schedule as well as DAVID, depression and PTSD. A: Ongoing depression and increased anxiety as well as increased PTSD symptoms in context of dysregulated peer on the unit and ongoing external stressors. Did sleep better with addition of mirtazapine. Tolerating current medications. Overall, I spent a total of 35 minutes on this case including meeting with the patient, reviewing the chart, nursing report, multidisciplinary team meeting, orders, and documentation. (1) Depression with suicidal ideation: (2) Generalized anxiety disorder with panic attacks: (3) Post traumatic stress disorder (PTSD): (4) Bipolar II disorder with seasonal pattern: (5) Psychosocial stressors: (6) Housing insecurity: (7) Sleep disorder, shift-work: (8) Insomnia: Plan 10/22/24: Continue current medication at current doses. Lithum level tomorrow. 10/21/2024: -Continue current medications and tx plan 10/20/2024: -Start mirtazapine 15mg HS -Schedule Vit D and Li level for morning of 10/23/2024 10/19/2024: -Start clonidine 0.1mg HS 10/18/2024: The patient was admitted to the [facility] ([facility]) on q15 min checks (behavioral with suicide precautions) for safety. The patient will participate in group, recreational, and milieu therapies and will be offered additional individual and family sessions as clinically appropriate. -Start Fluoxetine 20mg daily -Start [place] 300mg HS -Symptom questionnaires: mood disorder, KAYDEN scale, trauma questionnaire -Work on establishing outpatient care -She brought in leftover supply of insulin for which order has been written for it to be safely destroyed. Inventory Assets Strengths: supportive relationships, willing to get treatment Needs: safety and stabilization, medication adjustment, additional coping skills, increased outpatient services Suicide Risk Level Suicide Risk Level: High-Moderate (q15 min suicide checks) (depression with SI and s/p recent serious attempt but feels safe in the hospital and feels able to ask for support if needed) Risk Factors Assessment Male: No : Yes Do You Have Access To A Gun?: No Health Problems: No Mental Health Diagnoses: Yes Substance Use Disorders: No Previous Attempt: Yes Family History of Suicide: No Previous Psychiatric Hospitalization: Yes Hopelessness: Yes Protective Factors Assessment Responsible for Young Children: Yes Employed: No Stable Relationships: Yes Supportive Family: Yes Interval History Identifying Information AUTUMN HOGUE is a 34-year-old woman who is currently unhoused with her children (ages 7-15), has a history of MDD, DAVID, PTSD, and was admitted on 10/17/24 21:18 on a 201 voluntary commitment for SI with plan of trying to overdose on insulin and s/p attempt via insulin overdose two weeks ago. Chief Complaint "I overdosed on insulin". Review of Systems Sleep Information Total Hours of Sleep: 6 Meal Information Percent Meal Consumed - Breakfast: 75 Percent Meal Consumed - Lunch: 50 Percent Meal Consumed - Dinner: 75 Subjective Subjective Patient was seen & assessed and interval progress reviewed with nursing and social work. 34 y/o female PREPPER with a history of MDD, DAVID, PTSD. A diagnosis of Bipolar Disorder 2 was made during this admission. She was admitted following an intentional, planned suicide attempt by insulin overdose in context of recent housing instability. She had begun planning her suicide in August 2024, after getting notice that her rented apartment was being sold. This was the second attempt in less than 2 years. In January 2023, under similar conditions of financial stress, she attempted to asphyxiate herself using carbon monoxide. That attempt was also a planned, serious, researched attempt in which she taped a hose to her exhaust and taped the windows shut while waiting in a car parking lot for the smoke to take effect.She was admitted to [facility] but did not receive outpatient care after this. At this time, she denied suicidal ideation, intent or plan. Her mood is improved. She denied medication side effects. She denied flashbacks or nightmares at this time. Physical Exam Psychiatric Orientation: alert and oriented x 3 Apperance: appropriately dressed and appropriately groomed Eye Contact: good eye contact Motor Behavior: no abnormal motor movements Speech: normal rate/rhythm/volume of speech Affect: + anxious affect, + tearful affect and + constricted affect Mood: + depressed mood and + anxious mood Thought Process: goal directed thought process Thought Content: reality based without delusions Suicidal Thoughts: denies suicidal thoughts, denies suicidal plan (fears she is at risk for a repeat attempt outside the hospital.) and denies suicidal intent Homicidal Thoughts: denies homicidal thoughts Hallucinations: no auditory hallucinations and no visual hallucinations Cognition: recent memory grossly intact, remote memory grossly intact, attention grossly intact and language grossly intact Estimated Intelligence: consistent with education level Insight: good insight and + fair insight Judgment: + fair judgement Vital Signs (Past 24 Hours) Last Vital Signs Temp 36.7 C 10/22/24 06:32 Pulse 80 10/22/24 06:32 Resp 16 10/22/24 06:32 BP 111/73 10/22/24 06:32 Pulse Ox 97 10/20/24 06:00 O2 Del Method Room Air 10/20/24 06:00 Results & Data ([facility]) Current Inpatient Medications Current Inpatient Medications: Current Inpatient Medications Acetaminophen (Acetaminophen 325 Mg Tab) 650 mg PO Q4H PRN PRN Reason: Headache or Minor Fever Stop: 11/16/24 21:39 Last Admin: 10/21/24 22:25 Dose: 650 mg Al Hydrox/Mg Hydrox/Simethicone (Aluminum/Magnesium Susp 30 Ml Udc) 30 ml PO Q4H PRN PRN Reason: GI Upset Stop: 11/16/24 21:39 Last Admin: 10/20/24 20:53 Dose: 30 ml Bismuth Subsalicylate (Bismuth Subsalicylate 262 Mg Chew) 2 tab PO Q30M PRN PRN Reason: Loose Stool/Diarrhea Stop: 11/16/24 21:39 Clonidine HCl (Clonidine Hcl 0.1 Mg Tab) 0.1 mg PO HS [place] Stop: 11/18/24 21:59 Last Admin: 10/21/24 21:15 Dose: 0.1 mg Famotidine (Famotidine 40 Mg Tablet) 40 mg PO QAM [place] Stop: 11/20/24 14:59 Last Admin: 10/22/24 09:36 Dose: 40 mg Fluoxetine HCl (Fluoxetine Hcl 20 Mg Cap) 20 mg PO QAM [place] Stop: 11/17/24 12:59 Last Admin: 10/22/24 09:36 Dose: 20 mg Hydroxyzine HCl (Hydroxyzine Hcl 25 Mg Tab) 50 mg PO HSZ PRN PRN Reason: Insomnia Stop: 11/16/24 21:39 Last Admin: 10/20/24 21:55 Dose: 50 mg Hydroxyzine HCl (Hydroxyzine Hcl 25 Mg Tab) 25 mg PO Q4H PRN PRN Reason: Anxiety Stop: 11/16/24 21:39 [place] Carbonate ([place] Carbonate 300 Mg Tab) 300 mg PO HS [place] Stop: 11/17/24 21:59 Last Admin: 10/21/24 21:15 Dose: 300 mg Magnesium Hydroxide (Magnesium Hydroxide Susp 30 Ml Udc) 30 ml PO DAILY PRN PRN Reason: Constipation Stop: 11/16/24 21:39 Mirtazapine (Mirtazapine Tab 15 Mg Tab) 15 mg PO HS [facility] Stop: 11/19/24 21:59 Last Admin: 10/21/24 22:24 Dose: 15 mg Miscellaneous (Remove Nicoderm Patch) 1 each N/A DAILY@0859 [facility] Stop: 11/17/24 08:58 Last Admin: 10/22/24 09:36 Dose: 1 each Multivitamins/Minerals (Cerovite Adv Formula Tab) 1 tab PO QAM [facility] Stop: 11/20/24 08:59 Last Admin: 10/22/24 09:36 Dose: 1 tab Nicotine (Nicotine 21 Mg/24 Hr Tdsy) 1 patch TD QAM [facility] Stop: 11/16/24 19:29 Last Admin: 10/22/24 09:36 Dose: 1 patch Nicotine Polacrilex (Nicotine Polacrilex 2 Mg Gum) 2 piece MT PRN PRN PRN Reason: Nicotine Withdrawal Symptoms Stop: 11/16/24 21:39 Last Admin: 10/20/24 18:33 Dose: 2 piece Sodium Chloride (Sodium Chloride 0.65% Na Soln 45 Ml ([place])) 1 - 2 sprays NA PRN PRN PRN Reason: Nasal Dryness/Congestion Stop: 11/16/24 21:39 Mental Health & Subst Abuse Tx Therapist Name of Therapist: Shabana Bergman Therapist's Research Project Coordinator Name of Research Project Coordinator: [employer] Phone Number for Research Project Coordinator: [phone] Case Management Appointment Comment: CM will call you to sched (fax summary to [phone] to Omayra) Post Discharge Appointments Primary Care Physician Name Of Family Doctor/PCP: Shabana [facility]man [facility]
--- NOTE | 2024-10-23 12:00 | Psychiatric Progress Note ---
Date of Service October 23, 2024 Impression / Recommendations Impression AUTUMN HOGUE is a 34-year-old woman who is currently unhoused with her children (ages 7-15), has a history of MDD, DAVID, PTSD, and was admitted on 10/17/24 21:18 on a 201 voluntary commitment for SI with plan of trying to overdose on insulin and s/p attempt via insulin overdose two weeks ago. Diagnoses: Bipolar II Disorder, DAVID with panic attacks and PTSD. Agree that insomnia is multifactorial including difficulty due to variable overnight shift- work schedule as well as DAVID, depression and PTSD. A: Slight mood improvement today. PTSD symptoms have abated. Anxiety persists. Tolerating current medication. Discussed potential correction side effects including hypothyroidism (euthyroid at this time), cardiac conduction problems, multiple potential drug interactions (including but not limited to NSAIDs, KAYDEN inhibitors) and impact of dehydration on lithium level. Discussed impact of shift work as being a gamboa precipitant of mood episodes in bipolar disorder. Overall, I spent a total of 35 minutes on this case including meeting with the patient, reviewing the chart, nursing report, multidisciplinary team meeting, orders, and documentation. (1) Depression with suicidal ideation: (2) Generalized anxiety disorder with panic attacks: (3) Post traumatic stress disorder (PTSD): (4) Bipolar II disorder with seasonal pattern: (5) Psychosocial stressors: (6) Housing insecurity: (7) Sleep disorder, shift-work: (8) Insomnia: Plan 10/23/24: Increase lithium dose to 600mg qhs as [place] has been shown to be protective against suicide. Added Vit D. Discussed DBT for chronic SI. 10/22/24: Continue current medication at current doses. Lithum level tomorrow. 10/21/2024: -Continue current medications and tx plan 10/20/2024: -Start mirtazapine 15mg HS -Schedule Vit D and Li level for morning of 10/23/2024 10/19/2024: -Start clonidine 0.1mg HS 10/18/2024: The patient was [facility] to the [facility] on q15 min checks (behavioral with suicide precautions) for safety. The patient will participate in group, recreational, and milieu therapies and will be offered additional individual and family sessions as clinically appropriate. -Start Fluoxetine 20mg daily -Start [place] 300mg HS -Symptom questionnaires: mood disorder, KAYDEN scale, trauma questionnaire -Work on establishing outpatient care -She brought in leftover supply of insulin for which order has been written for it to be safely destroyed. Inventory Assets Strengths: supportive relationships, willing to get treatment Needs: safety and stabilization, medication adjustment, additional coping skills, increased outpatient services Suicide Risk Level Suicide Risk Level: High-Moderate (q15 min suicide checks) (depression with SI and s/p recent serious attempt but feels safe in the hospital and feels able to ask for support if needed) Risk Factors Assessment Male: No : Yes Do You Have Access To A Gun?: No Health Problems: No Mental Health Diagnoses: Yes Substance Use Disorders: No Previous Attempt: Yes Family History of Suicide: No Previous Psychiatric Hospitalization: Yes Hopelessness: Yes Protective Factors Assessment Responsible for Young Children: Yes Employed: No Stable Relationships: Yes Supportive Family: Yes Interval History Identifying Information AUTUMN HOGUE is a 34-year-old woman who is currently unhoused with her children (ages 7-15), has a history of MDD, DAVID, PTSD, and was admitted on 10/17/24 21:18 on a 201 voluntary commitment for SI with plan of trying to ov erdose on insulin and s/p attempt via insulin overdose two weeks ago. Chief Complaint "I am tired today". Review of Systems Sleep Information Total Hours of Sleep: 5.5 Meal Information Percent Meal Consumed - Breakfast: 75 Percent Meal Consumed - Lunch: 75 Percent Meal Consumed - Dinner: 75 Subjective Subjective Patient was seen & assessed and interval progress reviewed with nursing and social work. She slept well last night but still feels tired today. She thinks this might be the residual effects of doing shift work for over 6 years or not consuming her usual amounts of caffeine. Dry mouth is better. She denied other medication side effects. Vit D level is low. [place] level: 0.2. Mood is somewhat improved. She denied SI (last occurred 2 days ago). Reviewed her history: Depressive symptoms first occurred at age 14. Onset of hypomanic symptoms was around age 16. Main symptoms are elation ("giddy"), silly, laughing all the time, feeling invincible, and reckless/risky/impulsive spending and sexual behavior. Reports chronic passive SI since her teens, that never really cordelia. Past medication trials include Zoloft, Celexa, Effexor. During her last admission (January 2023, [facility]) this was queried but she was not actually diagnosed. No history of treatment with mood stabilizers, prior to this time. She recalls zoloft as being particularly helpful but did not stay on it for long enough. Physical Exam Psychiatric Orientation: alert and oriented x 3 Apperance: appropriately dressed and appropriately groomed Eye Contact: good eye contact Motor Behavior: no abnormal motor movements Speech: normal rate/rhythm/volume of speech Affect: + depressed affect, + anxious affect and + constricted affect Mood: + depressed mood and + anxious mood Thought Process: goal directed thought process Thought Content: reality based without delusions Suicidal Thoughts: denies suicidal thoughts, denies suicidal plan (fears she is at risk for a repeat attempt outside the hospital.) and denies suicidal intent Homicidal Thoughts: denies homicidal thoughts Hallucinations: no auditory hallucinations and no visual hallucinations Cognition: recent memory grossly intact, remote memory grossly intact, attention grossly intact and language grossly intact Estimated Intelligence: consistent with education level Insight: good insight and + fair insight Judgment: + fair judgement Vital Signs (Past 24 Hours) Last Vital Signs Temp 36.6 C 10/23/24 06:29 Pulse 80 10/23/24 06:30 Resp 16 10/23/24 06:29 BP 104/68 10/23/24 06:30 Pulse Ox 97 10/20/24 06:00 O2 Del Method Room Air 10/20/24 06:00 Results & Data ([facility]) Laboratory Results Laboratory Results - last 24 hr 10/23/24 08:56 25-OH Vitamin D Total 11.0 L [place] 0.2 L Current Inpatient Medications Current Inpatient Medications: Current Inpatient Medications Acetaminophen (Acetaminophen 325 Mg Tab) 650 mg PO Q4H PRN PRN Reason: Headache or Minor Fever Stop: 11/16/24 21:39 Last Admin: 10/21/24 22:25 Dose: 650 mg Al Hydrox/Mg Hydrox/Simethicone (Aluminum/Magnesium Susp 30 Ml Udc) 30 ml PO Q4H PRN PRN Reason: GI Upset Stop: 11/16/24 21:39 Last Admin: 10/20/24 20:53 Dose: 30 ml Bismuth Subsalicylate (Bismuth Subsalicylate 262 Mg Chew) 2 tab PO Q30M PRN PRN Reason: Loose Stool/Diarrhea Stop: 11/16/24 21:39 Clonidine HCl (Clonidine Hcl 0.1 Mg Tab) 0.1 mg PO [facility] Stop: 11/18/24 21:59 Last Admin: 10/22/24 21:11 Dose: 0.1 mg Famotidine (Famotidine 40 Mg Tablet) 40 mg [facility] [place] Stop: 11/20/24 14:59 Last Admin: 10/23/24 09:14 Dose: 40 mg Fluoxetine HCl (Fluoxetine Hcl 20 Mg Cap) 20 mg PO [facility] [place] Stop: 11/17/24 12:59 Last Admin: 10/23/24 09:14 Dose: 20 mg Hydroxyzine HCl (Hydroxyzine Hcl 25 Mg Tab) 50 mg PO HSZ PRN PRN Reason: Insomnia Stop: 11/16/24 21:39 Last Admin: 10/22/24 22:48 Dose: 50 mg Hydroxyzine HCl (Hydroxyzine Hcl 25 Mg Tab) 25 mg PO Q4H PRN PRN Reason: Anxiety Stop: 11/16/24 21:39 [place] Carbonate ([place] Carbonate 300 Mg Tab) 300 mg PO [facility] Stop: 11/17/24 21:59 Last Admin: 10/22/24 21:12 Dose: 300 mg Magnesium Hydroxide (Magnesium Hydroxide Susp 30 Ml Udc) 30 ml PO DAILY PRN PRN Reason: Constipation Stop: 11/16/24 21:39 Mirtazapine (Mirtazapine Tab 15 Mg Tab) 15 mg PO [facility] Stop: 11/19/24 21:59 Last Admin: 10/22/24 22:48 Dose: 15 mg Miscellaneous (Remove Nicoderm Patch) 1 each N/A DAILY@0859 [facility] Stop: 11/17/24 08:58 Last Admin: 10/23/24 09:14 Dose: 1 each Multivitamins/Minerals (Cerovite Adv Formula Tab) 1 tab PO [facility] [place] Stop: 11/20/24 08:59 Last Admin: 10/23/24 09:14 Dose: 1 tab Nicotine (Nicotine 21 Mg/24 Hr Tdsy) 1 patch TD QAOK [facility] [place] Stop: 11/16/24 19:29 Last Admin: 10/23/24 09:14 Dose: 1 patch Nicotine Polacrilex (Nicotine Polacrilex 2 Mg Gum) 2 piece MT PRN PRN PRN Reason: Nicotine Withdrawal Symptoms Stop: 11/16/24 21:39 Last Admin: 10/22/24 19:12 Dose: 2 piece Sodium Chloride (Sodium Chloride 0.65% Na Soln 45 Ml ([place])) 1 - 2 sprays NA PRN PRN PRN Reason: Nasal Dryness/Congestion Stop: 11/16/24 21:39 Mental Health & Subst Abuse Tx Therapist Name of Therapist: Shabana Bergman Therapist's Glove Operator Name of Glove Operator: [employer] Phone Number for Glove Operator: [phone] Case Management Appointment Comment: CM will call you to sched (fax summary to [phone] to Omayra) Post Discharge Appointments Primary Care Physician Name Of Family Doctor/PCP: [facility]
--- NOTE | 2024-10-23 12:37 | Psychiatric Progress Note ---
Date of Service October 23, 2024 Impression / Recommendations Impression AUTUMN HOGUE is a 34-year-old woman who is currently unhoused with her children (ages 7-15), has a history of MDD, DAVID, PTSD, and was admitted on 10/17/24 21:18 on a 201 voluntary commitment for SI with plan of trying to overdose on insulin and s/p attempt via insulin overdose two weeks ago. Diagnoses: Bipolar II Disorder, DAVID with panic attacks and PTSD. Agree that insomnia is multifactorial including difficulty due to variable overnight shift- work schedule as well as DAVID, depression and PTSD. A: Slight mood improvement today. PTSD symptoms have abated. Anxiety persists. Tolerating current medication. Discussed potential usp side effects including hypothyroidism (euthyroid at this time), cardiac conduction problems, multiple potential drug interactions (including but not limited to NSAIDs, KAYDEN inhibitors) and impact of dehydration on lithium level. Discussed impact of shift work as being a gamboa precipitant of mood episodes in bipolar disorder. Overall, I spent a total of 35 minutes on this case including meeting with the patient, reviewing the chart, nursing report, multidisciplinary team meeting, orders, and documentation. Inventory Assets Strengths: supportive relationships, willing to get treatment Needs: safety and stabilization, medication adjustment, additional coping skills, increased outpatient services Suicide Risk Level Suicide Risk Level: High-Moderate (q15 min suicide checks) (depression with SI and s/p recent serious attempt but feels safe in the hospital and feels able to ask for support if needed) Risk Factors Assessment Male: No : Yes Do You Have Access To A Gun?: No Health Problems: No Mental Health Diagnoses: Yes Substance Use Disorders: No Previous Attempt: Yes Family History of Suicide: No Previous Psychiatric Hospitalization: Yes Hopelessness: Yes Protective Factors Assessment Responsible for Young Children: Yes Employed: No Stable Relationships: Yes Supportive Family: Yes Interval History Identifying Information AUTUMN HOGUE is a 34-year-old woman who is currently unhoused with her children (ages 7-15), has a history of MDD, DAVID, PTSD, and was admitted on 10/17/24 21:18 on a 201 voluntary commitment for SI with plan of trying to overdose on insulin and s/p attempt via insulin overdose two weeks ago. Chief Complaint "[]". Review of Systems Sleep Information Total Hours of Sleep: 5.5 Meal Information Percent Meal Consumed - Breakfast: 75 Percent Meal Consumed - Lunch: 75 Percent Meal Consumed - Dinner: 75 Subjective Subjective Patient was seen & assessed and interval progress reviewed with [treatment team] [nursing and social work] Physical Exam Vital Signs (Past 24 Hours) Last Vital Signs Temp 36.6 C 10/23/24 06:29 Pulse 80 10/23/24 06:30 Resp 16 10/23/24 06:29 BP 104/68 10/23/24 06:30 Pulse Ox 97 10/20/24 06:00 O2 Del Method Room Air 10/20/24 06:00 Results & Data ([facility]) Laboratory Results Laboratory Results - last 24 hr 10/23/24 08:56 25-OH Vitamin D Total 11.0 L [place] 0.2 L Current Inpatient Medications Current Inpatient Medications: Current Inpatient Medications Acetaminophen (Acetaminophen 325 Mg Tab) 650 mg PO Q4H PRN PRN Reason: Headache or Minor Fever Stop: 11/16/24 21:39 Last Admin: 10/21/24 22:25 Dose: 650 mg Al Hydrox/Mg Hydrox/Simethicone (Aluminum/Magnesium Susp 30 Ml Udc) 30 ml PO Q4H PRN PRN Reason: GI Upset Stop: 11/16/24 21:39 Last Admin: 10/20/24 20:53 Dose: 30 ml Bismuth Subsalicylate (Bismuth Subsalicylate 262 Mg Chew) 2 tab PO Q30M PRN PRN Reason: Loose Stool/Diarrhea Stop: 11/16/24 21:39 Clonidine HCl (Clonidine Hcl 0.1 Mg Tab) 0.1 mg PO HS [facility] Stop: 11/18/24 21:59 Last Admin: 10/22/24 21:11 Dose: 0.1 mg Famotidine (Famotidine 40 Mg Tablet) 40 mg PO QAM [facility] Stop: 11/20/24 14:59 Last Admin: 10/23/24 09:14 Dose: 40 mg Fluoxetine HCl (Fluoxetine Hcl 20 Mg Cap) 20 mg PO QAM [facility] Stop: 11/17/24 12:59 Last Admin: 10/23/24 09:14 Dose: 20 mg Hydroxyzine HCl (Hydroxyzine Hcl 25 Mg Tab) 50 mg PO HSZ PRN PRN Reason: Insomnia Stop: 11/16/24 21:39 Last Admin: 10/22/24 22:48 Dose: 50 mg Hydroxyzine HCl (Hydroxyzine Hcl 25 Mg Tab) 25 mg PO Q4H PRN PRN Reason: Anxiety Stop: 11/16/24 21:39 [place] Carbonate (Primera Carbonate Slow Rel 300 Mg Tab) 600 mg PO HS [facility] Stop: 11/22/24 21:59 Magnesium Hydroxide (Magnesium Hydroxide Susp 30 Ml Udc) 30 ml PO DAILY PRN PRN Reason: Constipation Stop: 11/16/24 21:39 Mirtazapine (Mirtazapine Tab 15 Mg Tab) 15 mg PO [facility] Stop: 11/19/24 21:59 Last Admin: 10/22/24 22:48 Dose: 15 mg Miscellaneous (Remove Nicoderm Patch) 1 each N/A DAILY@0859 [facility] Stop: 11/17/24 08:58 Last Admin: 10/23/24 09:14 Dose: 1 each Multivitamins/Minerals (Cerovite Adv Formula Tab) 1 tab PO QAM [facility] Stop: 11/20/24 08:59 Last Admin: 10/23/24 09:14 Dose: 1 tab Nicotine (Nicotine 21 Mg/24 Hr Tdsy) 1 patch TD QAM [facility] Stop: 11/16/24 19:29 Last Admin: 10/23/24 09:14 Dose: 1 patch Nicotine Polacrilex (Nicotine Polacrilex 2 Mg Gum) 2 piece MT PRN PRN PRN Reason: Nicotine Withdrawal Symptoms Stop: 11/16/24 21:39 Last Admin: 10/22/24 19:12 Dose: 2 piece Sodium Chloride (Sodium Chloride 0.65% Na Soln 45 Ml ([place])) 1 - 2 sprays NA PRN PRN PRN Reason: Nasal Dryness/Congestion Stop: 11/16/24 21:39 Vitamin D (Cholecalciferol 25 Mcg (1000 Units) Tab) 25 mcg PO QAM [facility] Stop: 11/23/24 08:59 Mental Health & Subst Abuse Tx Therapist Name of Therapist: Shabana Bergman Therapist's Wing Scorer Name of Wing Scorer: Edg[employer] Phone Number for Wing Scorer: [phone] Case Management Appointment Comment: CM will call you to sched (fax summary to [phone] to Omayra) Post Discharge Appointments Primary Care Physician Name Of Family Doctor/PCP: Shabana [facility]
[2024-10-23] MEDS: hydrOXYzine HCl 25 MG TAB PO PRN (12:55)
[2024-10-23] MEDS: LITHIUM CARBONATE SLOW REL 300 MG TAB PO SCH (20:58)
[2024-10-24] MEDS: CHOLECALCIFEROL 25 MCG (1000 UNITS) TAB PO SCH (09:08)
--- NOTE | 2024-10-24 12:41 | Psychiatric Progress Note ---
Date of Service October 24, 2024 Impression / Recommendations Impression AUTUMN HOGUE is a 34-year-old woman who is currently unhoused with her children (ages 7-15), has a history of MDD, DAVID, PTSD, and was admitted on 10/17/24 21:18 on a 201 voluntary commitment for SI with plan of trying to overdose on insulin and s/p attempt via insulin overdose two weeks ago. Diagnoses: Bipolar II Disorder, DAVID with panic attacks and PTSD. A: Continued mood improvement, with better control of anxiety and PTSD symptoms. Overall, I spent a total of 35 minutes on this case including meeting with the patient, reviewing the chart, nursing report, multidisciplinary team meeting, orders, and documentation. (1) Depression with suicidal ideation: (2) Generalized anxiety disorder with panic attacks: (3) Post traumatic stress disorder (PTSD): (4) Bipolar II disorder with seasonal pattern: (5) Psychosocial stressors: (6) Housing insecurity: (7) Sleep disorder, shift-work: (8) Insomnia: Plan 10/24/24: Continue current medication. Continue other treatment. 10/23/24: Increase lithium dose to 600mg qhs as [place] has been shown to be protective against suicide. Added Vit D. Discussed DBT for chronic SI. 10/22/24: Continue current medication at current doses. Lithum level tomorrow. 10/21/2024: -Continue current medications and tx plan 10/20/2024: -Start mirtazapine 15mg HS -Schedule Vit D and Li level for morning of 10/23/2024 10/19/2024: -Start clonidine 0.1mg HS 10/18/2024: The patient was admitted to the [facility]) on q15 min checks (behavioral with suicide precautions) for safety. The patient will participate in group, recreational, and milieu therapies and will be offered additional individual and family sessions as clinically appropriate. -Start Fluoxetine 20mg daily -Start [place] 300mg HS -Symptom questionnaires: mood disorder, KAYDEN scale, trauma questionnaire -Work on establishing outpatient care -She brought in leftover supply of insulin for which order has been written for it to be safely destroyed. Inventory Assets Strengths: supportive relationships, willing to get treatment Needs: safety and stabilization, medication adjustment, additional coping skills, increased outpatient services Suicide Risk Level Suicide Risk Level: Moderate (q15 min suicide checks) Risk Factors Assessment Male: No : Yes Do You Have Access To A Gun?: No Health Problems: No Mental Health Diagnoses: Yes Substance Use Disorders: No Previous Attempt: Yes Family History of Suicide: No Previous Psychiatric Hospitalization: Yes Hopelessness: Yes Protective Factors Assessment Responsible for Young Children: Yes Employed: No Stable Relationships: Yes Supportive Family: Yes Interval History Identifying Information AUTUMN HOGUE is a 34-year-old woman who is currently unhoused with her children (ages 7-15), has a history of MDD, DAVID, PTSD, and was admitted on 10/17/24 21:18 on a 201 voluntary commitment for SI with plan of trying to overdose on insulin and s/p attempt via insulin overdose two weeks ago. Chief Complaint "I felt low last night". Review of Systems Sleep Information Total Hours of Sleep: 6 Meal Information Percent Meal Consumed - Breakfast: 50 Percent Meal Consumed - Lunch: 75 Percent Meal Consumed - Dinner: 50 Subjective Subjective Patient was seen & assessed and interval progress reviewed with treatment team. No side effects from higher dose of [place]. Sleep is improved. She is struggling emotionally today as it is her son's birthday today. Additionally, she had a call with her father last night that did not go well. She has found talking to peers in group sessions helpful. She denied SI or ps ychosis. Demonstrates good insight ("I need to be here right now"). 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 In her 20s, she restricted her weight to 120lbs (40lbs below her current ideal weight of 160s). No current symptoms of anorexia or bulimia, although she sometimes struggles with the urge to restrict. Physical Exam Psychiatric Orientation: alert and oriented x 3 Apperance: appropriately dressed and appropriately groomed Eye Contact: good eye contact Motor Behavior: no abnormal motor movements Speech: normal rate/rhythm/volume of speech Affect: + anxious affect Mood: + depressed mood and + anxious mood Thought Process: goal directed thought process Thought Content: reality based without delusions Suicidal Thoughts: denies suicidal thoughts, denies suicidal plan and denies suicidal intent Homicidal Thoughts: denies homicidal thoughts Hallucinations: no auditory hallucinations and no visual hallucinations Cognition: recent memory grossly intact, remote memory grossly intact, attention grossly intact and language grossly intact Estimated Intelligence: consistent with education level Insight: good insight and + fair insight Judgment: + fair judgement Vital Signs (Past 24 Hours) Last Vital Signs Temp 36.6 C 10/24/24 06:36 Pulse 83 10/24/24 06:36 Resp 16 10/24/24 06:36 BP 102/65 10/24/24 06:36 Pulse Ox 97 10/20/24 06:00 O2 Del Method Room Air 10/20/24 06:00 Results & Data ([facility]) Current Inpatient Medications Current Inpatient Medications: Current Inpatient Medications Acetaminophen (Acetaminophen 325 Mg Tab) 650 mg PO Q4H PRN PRN Reason: Headache or Minor Fever Stop: 11/16/24 21:39 Last Admin: 10/21/24 22:25 Dose: 650 mg Al Hydrox/Mg Hydrox/Simethicone (Aluminum/Magnesium Susp 30 Ml Udc) 30 ml PO Q4H PRN PRN Reason: GI Upset Stop: 11/16/24 21:39 Last Admin: 10/20/24 20:53 Dose: 30 ml Bismuth Subsalicylate (Bismuth Subsalicylate 262 Mg Chew) 2 tab PO Q30M PRN PRN Reason: Loose Stool/Diarrhea Stop: 11/16/24 21:39 Clonidine HCl (Clonidine Hcl 0.1 Mg Tab) 0.1 mg PO HS [facility] Stop: 11/18/24 21:59 Last Admin: 10/23/24 20:58 Dose: 0.1 mg Famotidine (Famotidine 40 Mg Tablet) 40 mg PO QAM [facility] Stop: 11/20/24 14:59 Last Admin: 10/24/24 09:08 Dose: 40 mg Fluoxetine HCl (Fluoxetine Hcl 20 Mg Cap) 20 mg PO QAM [facility] Stop: 11/17/24 12:59 Last Admin: 10/24/24 09:08 Dose: 20 mg Hydroxyzine HCl (Hydroxyzine Hcl 25 Mg Tab) 50 mg PO HSZ PRN PRN Reason: Insomnia Stop: 11/16/24 21:39 Last Admin: 10/23/24 23:18 Dose: 50 mg Hydroxyzine HCl (Hydroxyzine Hcl 25 Mg Tab) 25 mg PO Q4H PRN PRN Reason: Anxiety Stop: 11/16/24 21:39 Last Admin: 10/24/24 10:39 Dose: 25 mg [place] Carbonate ([place] Carbonate Slow Rel 300 Mg Tab) 600 mg PO HS [facility] Stop: 11/22/24 21:59 Last Admin: 10/23/24 20:58 Dose: 600 mg Magnesium Hydroxide (Magnesium Hydroxide Susp 30 Ml Udc) 30 ml PO DAILY PRN PRN Reason: Constipation Stop: 11/16/24 21:39 Mirtazapine (Mirtazapine Tab 15 Mg Tab) 15 mg PO [facility] Stop: 11/19/24 21:59 Last Admin: 10/23/24 23:17 Dose: 15 mg Miscellaneous (Remove Nicoderm Patch) 1 each N/A DAILY@0859 [facility] Stop: 11/17/24 08:58 Last Admin: 10/24/24 09:10 Dose: 1 each Multivitamins/Minerals (Cerovite Adv Formula Tab) [facility] [place] [facility] [place] Stop: 11/20/24 08:59 Last Admin: 10/24/24 09:08 Dose: 1 tab Nicotine (Nicotine 21 Mg/24 Hr Tdsy) 1 patch [facility] [place] [place] Stop: 11/16/24 19:29 Last Admin: 10/24/24 09:09 Dose: 1 patch Nicotine Polacrilex (Nicotine Polacrilex 2 Mg Gum) 2 piece MT PRN PRN PRN Reason: Nicotine Withdrawal Symptoms Stop: 11/16/24 21:39 Last Admin: 10/23/24 18:09 Dose: 2 piece Sodium Chloride (Sodium Chloride 0.65% Na Soln 45 Ml ([place])) 1 - 2 sprays NA PRN PRN PRN Reason: Nasal Dryness/Congestion Stop: 11/16/24 21:39 Vitamin D (Cholecalciferol 25 Mcg (1000 Units) Tab) 25 mcg PO QAM [facility] Stop: 11/23/24 08:59 Last Admin: 10/24/24 09:08 Dose: 25 mcg Mental Health & Subst Abuse Tx Therapist Name of Therapist: Shabana Bergman Therapist's Regulatory Affairs Portfolio Leader Name of Regulatory Affairs Portfolio Leader: Edgardo [employer] Phone Number for Regulatory Affairs Portfolio Leader: [phone] Case Management Appointment Comment: CM will call you to dayday (fax summary to [phone] to Omayra) Post Discharge Appointments Primary Care Physician Name Of Family Doctor/PCP: Shabana [facility]man [facility]
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
[2024-10-25] MEDS: MIRTAZAPINE TAB 15 MG TAB PO SCH (22:51)
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
[2024-10-27] MEDS ORDERED: cloNIDine HCL 0.1 MG TAB PO SCH (16:00)
[2024-10-27] MEDS: cloNIDine HCL 0.1 MG TAB PO SCH (16:07)
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
--- NOTE | 2024-10-29 09:04 | Discharge Summary ---
Date of Service October 29, 2024 History of Present Illness She presents for psychiatric admission for worsening depression and SI with plan of insulin overdose in the context of multiple psychosocial stressors including no longer being able to afford the home she was renting (eviction notice was served two weeks ago before attempt), being a single mother, financial strain, challenges finding consistent work in recent months, and recent suicide attempt. Danita has been feeling very depressed and had made preparations to by suicide about two weeks ago including ensuring her children were in the care of her mother and then used a non-prescribed insulin pen on herself. She remains regretful that this attempt did not result in her and continues to have SI with plan and sought inpatient treatment to feeling that "I will do it again". She endorses a lot of anxiety, frequent fidgeting/restlessness, ruminative thoughts, panic attacks 1-4 times per week. Anxiety is exacerbated by her current living situation of staying at her mom's in recent weeks. She experiences constant running thoughts at night, fidgeting, and shaking. She endorses depressive symptoms including tearfulness, anhedonia, decreased motivation, self-guilt, helplessness, hopelessness, decreased energy, decreased appetite (lost 12 lbs in the last 3 months), and decreased sleep with difficulty falling and staying asleep (typically works 11pm-7am, slept a little better since quitting her job). SI has been occurring intermittently for many years but at times it becomes overwhelming as occurred in the context of losing her housing two weeks ago. She felt regretful after she survived the suicide attempt and decided them she needed to seek inpatient treatment. She continues to have flashbacks, avoidance, can be hypervigilant, sometimes has night terrors (occurs a few times per month), discomfort with physical touch, and describes being in a constant "fight or flight mode". She is not currently prescribed any psychiatric medications. She often struggles with medication adherence. Psychiatric ROS notable for no current nor history of symptoms of quinton, psychosis, OCD, nor self-harm. However she does report possible hypomanic episodes lasting a few days, characterized by increased productivity and elev ated mood, followed by depressive episodes. Seasonal affective disorder is noted during winter months. 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 Physical Exam Vital Signs (Past 24 Hours) Last Vital Signs Temp 36.6 C 10/29/24 06:23 Pulse 84 10/29/24 06:25 Resp 18 10/29/24 06:23 BP 115/81 10/29/24 06:25 Pulse Ox 97 10/29/24 06:23 O2 Del Method Room Air 10/29/24 06:23 Principal Diagnosis Bipolar Affective Disorder, current depressive episode Psychiatric Data See daily stay summary. In short, patient was engaged with the social/therapeutic milieu of the unit, safety was maintained and the patient was cooperative with care. Medication changes included initiation of Bache for mood stabilization, fluoxetine for depression/anxiety/PTSD, clonidine for off- label use for anxiety/PTSD, mirtazapine for insomnia/depression/anxiety and Vit D for deficiency and they tolerated this well. A support session was held and safety plan was completed prior to discharge. Baseline labs of thyroid function, kidney function, weight, electrolytes, CBC, and UA were preformed and normal. Bache level at discharge was 0.4. Recommend repeat lithium level, thyroid function and kidney function labwork at 6 months and then annually or anytime symptoms arise. They participated in safety planning and in discussions about ways to seek support and recognizing warning signs and utilizing coping skills. Reviewed ways to have their safety plan and contacts easily available should thoughts of SI re-emerge in the future. Reviewed importance of seeking emergency care should SI intensify, worsen or should they feel unsafe in the future which they agree to do. On the day of discharge they stated their mood was "hopeful" and "continue t o get better" and remained future-oriented including seeing her kids and engaging in aftercare appointments for psychiatry, therapy and case management. Day of Discharge Assessment Today the patient voices readiness for discharge. They note improvement in mood and anxiety. They deny thoughts of harm to self or others. Thoughts are organized and they are clinically improved from admission. There is no evidence of psychosis. They improved in the hospital with support and medication adjustments. They agree to take medications as prescribed and keep follow-up appointments. At the time of the discharge they are deemed to be stable and appropriate for outpatient level of care. They are not deemed to be at imminent risk of harm to self or others. They are aware of emergency and crisis services. Knows to call 911 or go to nearest emergency care center if in a crisis which cannot be handled as an outpatient. Suicide risk assessment: Acute risk is low given improvement in mood and denial of SI, lack of access to lethal means, improvement in sleep, hopefulness. Chronic risk is moderate to high given some non-modifiable risk factors: psychiatric co-morbid diagnoses, periods of impulsivity, prior attempt, emotional reactivity, prior psychiatric hospitalizations, limited social support, mood disorder, trauma, but also with protective factors including plan to resume her job soon, good social support from family, sense of responsibility to family and social supports, outpatient care in place, positive coping skills, positive problem solving, willingness to engage with treatment and self-observation. Counseled on ways to reduce acute and chronic risk including engaging with outpatient providers, using safety plan if needed, utilizing supports, taking medication, and using coping skills. Modifiable risk factors of SI and depression were addressed during hospitalization through development of new coping skills, support meeting, safety planning, and medication adjustments. Discharge physical exam: See admission H&P, MSE per above and day of discharge summary. Overall, I spent a total of 35 minutes on this case including meeting with the patient, reviewing the chart, nursing report, multidisciplinary team meeting, discharge orders, anticipatory planning, safety planning, risk assessment and d ocumentation. Transition of Care Transition Of Care Record: was reviewed with the patient Advance Directives Advance Directives Information Provided: No Advance Directives: No Mental Health Advance Directive: No Advance Directives on File: No Living Will: No Power of Dedicated Truck Driver: No Advance Directives Reason:: Declines as Mental Health Visit. Suicide Risk Level Suicide Risk Level Comments: Acute risk is low given denial of SI, see further assessment above Risk Factors Assessment Male: No : Yes Do You Have Access To A Gun?: No Health Problems: No Mental Health Diagnoses: Yes Substance Use Disorders: No Previous Attempt: Yes Family History of Suicide: No Previous Psychiatric Hospitalization: Yes Hopelessness: No Protective Factors Assessment Responsible for Young Children: Yes Employed: No Stable Relationships: Yes Supportive Family: Yes Tobacco Cessation at Discharge Tobacco Cessation Medication Prescribed at Discharge: Offered & Prescribed Discharge Data Lab Results 10/17/24 10/17/24 10/17/24 18:45 19:30 20:28 WBC 8.51 RBC 4.26 Hgb 13.8 Hct 40.5 MCV 95.1 MCH 32.4 MCHC 34.1 RDW Std Deviation 42.1 RDW Coeff of Robert 12.0 Plt Count 327 MPV 9.9 Immature Gran % (Auto) 0.1 Neut % (Auto) 55.6 Lymph % (Auto) 30.2 Wilkin % (Auto) 7.3 Eos % (Auto) 6.2 Baso % (Auto) 0.6 Neut # (Auto) 4.73 Lymph # (Auto) 2.57 Wilkin # (Auto) 0.62 H Eos # (Auto) 0.53 H Baso # (Auto) 0.05 Immature Gran # (Auto) 0.01 Sodium 139 Potassium 4.0 Chloride 104 Carbon Dioxide 29 Anion Gap 6 BUN 15 Creatinine 0.84 Est Cr Clr Drug Dosing 94.2 eGFR 92.30 BUN/Creatinine Ratio 17.9 Glucose 95 Calcium 9.3 Total Bilirubin 0.5 AST 14 ALT 13 Alkaline Phosphatase 65 Total Protein 7.8 Albumin 4.9 Globulin 2.9 Albumin/Globulin Ratio 1.7 25-OH Vitamin D Total TSH 3.119 HCG, Qual Negative Urine Color Urine Appearance Urine pH Ur Specific [place] Urine Protein Urine Glucose (UA) Urine Ketones Urine Blood Urine Nitrite Urine Bilirubin Urine Urobilinogen Ur Leukocyte Esterase Urine WBC (Auto) Urine RBC (Auto) U Hyaline Cast (Auto) U Epithel Cells (Auto) Urine Bacteria (Auto) Salicylates < 3.0 L Urine Opiates Screen Neg Ur Methadone, Qual Neg Urine Fentanyl Screen Neg Acetaminophen < 3 L Urine Barbiturates Neg Ur Phencyclidine (PCP) Neg U Amphetamin/Meth Scrn Neg MDMA (Ecstasy) Screen Neg U Benzodiazepines Scrn Neg Bache Ur Cocaine Metabolite Neg U Marijuana (THC) Screen Neg Ethyl Alcohol mg/dL < 10.0 SARS-CoV-2, RNA, NAAT NEGATIVE 10/17/24 10/23/24 Unknown 08:56 WBC RBC Hgb Hct MCV MCH MCHC RDW Std Deviation RDW Coeff of Robert Plt Count MPV Immature Gran % (Auto) Neut % (Auto) Lymph % (Auto) Wilkin % (Auto) Eos % (Auto) Baso % (Auto) Neut # (Auto) Lymph # (Auto) Wilkin # (Auto) Eos # (Auto) Baso # (Auto) Immature Gran # (Auto) Sodium Potassium Chloride Carbon Dioxide Anion Gap BUN Creatinine Est Cr Clr Drug Dosing eGFR BUN/Creatinine Ratio Glucose Calcium Total Bilirubin AST ALT Alkaline Phosphatase Total Protein Albumin Globulin Albumin/Globulin Ratio 25-OH Vitamin D Total 11.0 L TSH HCG, Qual Urine Color Yellow Urine Appearance Cloudy A Urine pH 6.0 Ur Specific [place] 1.025 Urine Protein Trace H Urine Glucose (UA) Negative Urine Ketones Trace H Urine Blood 3+ H Urine Nitrite Negative Urine Bilirubin Negative Urine Urobilinogen Negative Ur Leukocyte Esterase Trace H Urine WBC (Auto) 0-5 Urine RBC (Auto) >20 H U Hyaline Cast (Auto) 0-2 U Epithel Cells (Auto) 11-20 H Urine Bacteria (Auto) 2+ H Salicylates Urine Opiates Screen Ur Methadone, Qual Urine Fentanyl Screen Acetaminophen Urine Barbiturates Ur Phencyclidine (PCP) U Amphetamin/Meth Scrn MDMA (Ecstasy) Screen U Benzodiazepines Scrn Bache 0.2 L Ur Cocaine Metabolite U Marijuana (THC) Screen Ethyl Alcohol mg/dL SARS-CoV-2, RNA, NAAT Hospital Course (1) Depression with suicidal ideation: (2) Generalized anxiety disorder with panic attacks: (3) Post traumatic stress disorder (PTSD): (4) Bipolar II disorder with seasonal pattern: (5) Psychosocial stressors: (6) Housing insecurity: (7) Sleep disorder, shift-work: (8) Insomnia: Plan 10/29/2024: Feels safe and ready for discharge -Bache level reviewed 10/28/24: Continue current meds. Bache level ordered accidentally for 10/30/24. Reordered for tomorrow morning. Anticipate discharge tomorrow. 10/27/24: Added Clonidine 0.5mg q 1600hrs daily for late afternoon anxiety. Educated about potential for orthostatic symptoms. Monitor BP. Follow Li level. ELOS 1 - 2 days 10/26/24: Continue current medication. Recommended active exploration of avenues to address housing and financial c oncerns. ELOS 3 days. 10/25/24: Increase Mirtazapine to 30mg qhs for depressed mood. Advised pt of potential side effects, including weight gain and mood cycling. Continue other medication at current doses. Schedule lithium level check for 10/30/24. Discussed aftercare planning including IOP. She reports this may not be practical for her, given her responsibility to her kids. 10/24/24: Continue current medication. Continue other treatment. 10/23/24: Increase lithium dose to 600mg qhs as Bache has been shown to be protective against suicide. Added John Paul Waller. Discussed DBT for chronic SI. 2/8/25: Continue current medication at current doses. Lithum level tomorrow. 10/21/2024: -Continue current medications and tx plan 10/20/2024: -Start mirtazapine 15mg HS -Schedule Vit D and Li level for morning of 10/23/2024 10/19/2024: -Start clonidine 0.1mg HS 10/18/2024: The patient was admitted to the [facility] ([facility] mental health unit) on q15 min checks (behavioral with suicide precautions) for safety. The patient will participate in group, recreational, and milieu therapies and will be offered additional individual and family sessions as clinically appropriate. -Start Fluoxetine 20mg daily -Start Bache 300mg HS -Symptom questionnaires: mood disorder, KAYDEN scale, trauma questionnaire -Work on establishing outpatient care -She brought in leftover supply of insulin for which order has been written for it to be safely destroyed. Mental Health & Subst Abuse Tx Psychiatrist Name of Psychiatrist: Shabana Bergman [facility] Psychiatrist's Psychiatric Appointment Comment: PCP will schedule Psychiatrist & Therapist at time of PCP appointment Therapist Name of Therapist: Shabana Bergman Therapist's Therapy Appointment Comment: PCP will schedule Psychiatrist & Therapist at time of PCP appointment Pick Up Worker Name of Pick Up Worker: [employer] Phone Number for Pick Up Worker: [phone] Case Management Appointment Comment: CM will call you to sched Post Discharge Appointments Primary Care Physician Name Of Family Doctor/PCP: Shabana Bergman [facility] Date of Future Appointment with PCP: 11/02/2024 Time of Appointment with PCP: 3:00 PM Provider Appointment Comment: PCP will schedule Psychiatrist & Therapist at time of PCP appointment Smoking Cessation Counseling Tobacco Cessation Medication Prescribed at Discharge: Offered & Prescribed Discharge Plan Discharge Items Patient Disposition: Home - Self-Care Reason For Visit: UNSPECIFIED DESPRESSIVE DISORDER Discharge Diagnosis: BIpolar Affective Disorder, current depressive episode Activity: Resume your previous activity Non-emergency contact: Primary Care Provider, Psychiatrist, Therapist and Process Control Operator Call non-emergency contact if: you have any medication questions and your symptoms worsen Follow-up/Referrals: Sherie Glover CRNP [Primary Care Provider] - Diet: Regular Addtl Attending Provider Instructions: Optional mobile apps we discussed: -Suicide safety plan -Virtual Hope Box SPECIAL CARE INSTRUCTIONS: 1. Follow through with your scheduled aftercare appointments. If unable to keep an appointment, please call to reschedule. 2. Take your medication only as prescribed. Medication should not be changed or stopped without the approval of your doctor. In the event of worsening symptoms or concerns about side effects, contact your doctor immediately. 3. Utilize new healthy coping skills, anger management skills, and stress management skills learned during your hospitalization. Journal feelings and process them with a support person. Identify stressors or situations that may result in relapse, deterioration or inappropriate behaviors and develop a plan to deal with those issues. 4. If your coping skills are ineffective and you are in crisis, contact your outpatient providers for direction. If unable to reach your providers, please call the [facility] CRISIS LINE AT , go to the [facility] walk-in center at [address], [address], [place], or go to the closest Emergency Room. 5. Avoid alcohol and un-prescribed drugs. 6. You have been provided with the Mental Health Advance Directives Pamphlet for your review. 7. Your condition is stable for discharge to outpatient level of care, but recovery is an ongoing process. Ifthoughts to harm yourself or others return, follow the safety plan developed during your stay. Planning for a safe return home includes securing weapons. Our treatment team recommends weaponsbe removed from the home until your outpatient provider reassesses your progress. In rare cases where the items themselvescannot be removed, guns and ammunitionshould be secured separatelyand keys stored by a reliable personoutside of the home. If you were admitted on an involuntary commitment, the police or other legal authorities may be involved in this process. AFTERCARE APPOINTMENTS: * Please call your insurance company prior to your scheduled appointment to confirm your aftercare providers are covered. Take your insurance information to your appointments. WHO TO CALL AND WHEN: Medical Emergencies: For questions or emergencies related to your hospital stay, please contact the Inpatient Behavioral Health Unit at [phone]. A psychiatric arnp is on-call 06/04 for the Behavioral Health Unit for emergencies At any time you feel your situation is an emergency, you may also call 911 immediately. National Crisis Hotline: 945 Pending Studies at Discharge: Yes (lithium level, nurses will call with result ) Stand-Alone Forms: [facility], Smoking Cessation Medications and DC Order Prescriptions: New nicotine [Nicoderm CQ] 21 mg/24 hr Patch 24 Hour 1 patch transdermal QAM 28 Days Qty: 28 0RF clonidine HCl 0.1 mg Tablet 0.1 mg PO HS 30 Days Qty: 30 0RF clonidine HCl 0.1 mg Tablet 0.05 mg PO QD@16 30 Days Qty: 30 0RF fluoxetine 20 mg Capsule 20 mg PO QAM 30 Days Qty: 30 0RF hydroxyzine HCl 50 mg tablet 50 mg PO HS PRN (Reason: insomnia/anxiety) 30 Days Qty: 30 0RF lithium carbonate 300 mg Tablet Extended Release 600 mg PO HS 30 Days Qty: 60 0RF mirtazapine 30 mg tablet 30 mg PO HS 30 Days Qty: 30 0RF famotidine 40 mg Tablet 40 mg PO QAM 30 Days Qty: 30 0RF cholecalciferol (vitamin D3) 25 mcg (1,000 unit) Capsule 25 mcg PO QAM 30 Days Qty: 30 0RF No Action No Known Home Medications Discharge Orders: Discharge Order (Routine); Ordered 10/29/24 Ordered By: Daphne Peters Admission Data Admit Date/Time: 10/17/24 21:18 Attending Provider: Daphne Peters Admit Provider: Daphne Peters Primary Care Provider: Sherie Glover Other Interventions: Discharge Summary Assessment (RN) Last Done: 10/29/24 09:19 Coding Level of Care Code 40236 D/C day mgmt > 30 min Diagnoses Depression with suicidal ideation F32.A; R45.851 Generalized anxiety disorder with panic attacks F41.1; F41.0 Post traumatic stress disorder (PTSD) F43.10 Bipolar II disorder with seasonal pattern F31.81 Psychosocial stressors Z65.8 Housing insecurity Z59.819 Sleep disorder, shift-work G47.26 Insomnia, unspecified type G47.00 Insomnia type: unspecified
== END 2024-10-29 11:10 | disposition home or self-care (01) | DRG 885 ==
LOC: ED 18:36 → 3S 21:18